=== PATIENT | male | born 1995 | race African-American/Black ===

== ENCOUNTER 2020-01-27 10:03 | Inpatient (IN) | payer OTHER ==
[2020-01-27] VITALS (13 sets, daily range): BP systolic 134–174; BP diastolic 63–90
[~2020-01-27] VITALS: Ht 180.3 cm; Wt 93.0 kg
[~2020-01-27 10:03] MED LIST: LEXAPRO10 MG ORAL; Lidocaine 1% MPF 10mg/ml 5ml ONE; Midazolam 2mg/2ml Inj ONE; fentaNYL 100 mcg/2 mL IV ONE
--- NOTE | 2020-01-27 10:08 | Pre-Procedure Note/Attestation ---
Pre-Procedure Note/Attestation Complete Prior to Procedure Planned Procedure: bilateral Procedure Narrative: Bilateral axillary excision and flap elevation. Attestation I attest that I discussed the nature of the procedure; its benefits; risks and complications; and alternatives (and the risks and benefits of such alternatives), prior to the procedure, with the patient (or the patient's legal food products sales representative). I attest that, if there was a reasonable possibility of needing a blood transfusion, the patient (or the patient's legal food products sales representative) was given the [facility] standardized written summary, pursuant to the [place] Blood Safety Act ([place] [facility] and Safety Code # 1645, as amended). I attest that I re-evaluated the patient just prior to the surgery and that there has been no change in the patient's H&P, except as documented below: Manas March MD Jan 27, 2020 10:08
[2020-01-27] MEDS ORDERED: Succinylcholine 20mg/ml 10ml vial ONE (10:12)
[2020-01-27] MEDS ORDERED: TransDerm Scop 1.5mg/72HR Patch TDERMAL ONE (10:12)
[2020-01-27] MEDS ORDERED: Rocuronium Bromide 50mg/5ml Inj IV ONE ×2 (10:12→16:07)
[2020-01-27] MEDS ORDERED: EPINEPHrine 1mg/1ml Amp ONE (10:17)
[2020-01-27] MEDS ORDERED: Bacitracin 50000 Units Vial ONE ×2 (10:18→13:16)
[2020-01-27] MEDS ORDERED: Lidocaine 1%/ 10mg/ml/EPI 0.01mg/ml 20ml INJ ONE ×2 (10:18→13:16)
--- NOTE | 2020-01-27 15:06 | Anethesia Preoperative Eval ---
Anesthesia Pre-op PMH/ROS General Date of Evaluation: Jan 27, 2020 Time of Evaluation: 15:49 Anesthesiologist: Katherine ASA Score: ASA 1 Mallampati Score Class I : Soft palate, uvula, fauces, pillars visible Class II: Soft palate, uvula, fauces visible Class III: Soft palate, base of uvula visible Class IV: Only hard plate visible Mallampati Classification: Class II Surgeon: Anca Diagnosis: Hiradenitis Surgical Procedure: Bilateral axillary excision and flap elevation Anesthesia History: none Family History: no anesthesia problems Allergies: Coded Allergies: No Known Allergies (Unverified , 01/27/20) Medications: see eMAR Patient NPO?: Yes Past Medical History Musculoskeletal/Integumentary: Reports: other - Suppurative Hidradenitis Anesthesia Pre-op Phys. Exam Physician Exam Last Vital Signs Date Time Temp Pulse Resp B/P (MAP) Pulse Ox O2 Delivery O2 Flow Rate FiO2 01/27/20 10:32 97.8 94 20 139/63 (88) 97 Constitutional: NAD Neurologic: CN 2-12 intact Cardiovascular: RRR Respiratory: CTA Gastrointestinal: S/NT/ND Airway Exam Mallampati Score: Class II MO: full ROM: full Teeth: intact Anesthesia Pre-op A/P Risk Assessment & Plan Assessment: ASA 1 Plan: GA, SED, GlideScope Status Change Before Surgery: No Pre-Antibiotics Dru Gram Ancef IV Given Within 1 Hr of Incision: Yes Time Given: 16:16 Jason Murphy MD Jan 27, 2020 15:06
--- NOTE | 2020-01-27 15:10 | Immediate Post-Op Evaluation ---
Immediate Post-Op Evalulation Immediate Post-Op Evalulation Procedure: Bilateral axillary excision and flap elevation Date of Evaluation: Jan 27, 2020 Time of Evaluation: 19:19 IV Fluids: 1200 LR Blood Products: 0 Estimated Blood Loss: 200 Urinary Output: 0 Blood Pressure Systolic: 148 Blood Pressure Diastolic: 85 Pulse Rate: 94 Respiratory Rate: 16 O2 Sat by Pulse Oximetry: 94 Temperature (Fahrenheit): 97.3 Pain Score (1-10): 2 Nausea: No Vomiting: No Complications 0 Patient Status: awake, reacts, patent, extubated, none Hydration Status: adequate Dru Gram Ancef IV Given Within 1 Hr of Incision: Yes Time Given: 16:16 Jason Murphy MD Jan 27, 2020 15:10
[2020-01-27] MEDS ORDERED: LORazepam Inj 2mg/ml 1ml IV PRN (15:15)
[2020-01-27] MEDS ORDERED: Labetalol 5mg/ml 20ml vial IV PRN (15:15)
[2020-01-27] MEDS ORDERED: LR 1000ml 1,000 ML IVLG SCH (15:15)
[2020-01-27] MEDS ORDERED: Hydromorphone 0.5mg/0.5ml inj IVP PRN (15:15)
[2020-01-27] MEDS ORDERED: HYDROcodone/Acetamin 5/325 tab ORAL PRN ×2 (15:15→22:00)
[2020-01-27] MEDS ORDERED: Midazolam 2mg/2ml Inj IVP PRN (15:15)
[2020-01-27] MEDS ORDERED: Metoclopramide 10mg/2ml Inj IVP PRN (15:15)
[2020-01-27] MEDS ORDERED: fentaNYL 100 mcg/2 mL IV PRN (15:15)
[2020-01-27] MEDS ORDERED: Meperidine 25mg/1ml Inj (FOR RIGORS ONLY) IV PRN (15:15)
[2020-01-27] MEDS ORDERED: Ketorolac 30mg Inj IV PRN ×2 (15:15)
[2020-01-27] MEDS ORDERED: HYDROcodone/Acetamin 7.5/325 tab ORAL PRN (15:15)
[2020-01-27] MEDS ORDERED: oxyCODONE HCL/Acetaminophen 5/325mg ORAL PRN (15:15)
[2020-01-27] MEDS ORDERED: DiphenhydrAMINE 50mg/ml Inj IVP PRN (15:15)
[2020-01-27] MEDS ORDERED: Atropine Sulfate 0.4mg/ml inj IVP PRN (15:15)
[2020-01-27] MEDS ORDERED: Acetaminophen (Non formulary) 100 ML IV ONE (15:15)
[2020-01-27] MEDS ORDERED: NS Irrig 1000ml ONE (15:50)
[2020-01-27] MEDS ORDERED: Sterile Water Irrig 1000ml IRRIG ONE (15:50)
[2020-01-27] MEDS ORDERED: LR 1000ml ONE (15:50)
[2020-01-27] MEDS ORDERED: Lidocaine 1% Plain 30 ml INJ ONE ×2 (15:56→17:38)
[2020-01-27] MEDS ORDERED: Lidocaine 1% MPF 10mg/ml 5ml ONE (15:56)
[2020-01-27] MEDS ORDERED: Sodium Chloride 10ml vial INJ ONE (15:56)
[2020-01-27] MEDS ORDERED: PCA Education Pamphlet MISC ONE (16:00)
[2020-01-27] MEDS ORDERED: Rate Change PCA 1 Each MISC PRN (16:00)
[2020-01-27] MEDS ORDERED: fentaNYL 100 mcg/2 mL IV ONE ×3 (16:04→18:05)
[2020-01-27] MEDS ORDERED: Ketamine 500mg/10ml vial ONE (16:49)
[2020-01-27] MEDS ORDERED: Surgicel 4in x 8in TOPIC ONE (16:55)
--- NOTE | 2020-01-27 17:56 | History and Physical ---
History of Present Illness Present Illness HPI Mr. Grayson is a 24-year-old male with past medical history of bilateral axillary hidradenitis suppurative who is postop bilateral excision and flap removal of HS. no postoperative complications noted. Patient with some acute postop pain. Otherwise stable. Notes no other medical history aside of anxiety. Takes as Lexapro daily. Most modalities to treat his at bedtime however unsuccessful. Rest of review systems otherwise negative. Past medical history: Anxiety, hidradenitis suppurative Past surgical history: None Family history: Mom and dad both have hypertension Social history: Denies tobacco use, drug use, is a social drinker Allergies: Coded Allergies: No Known Allergies (Unverified , 01/27/20) COVID-19 Screening Contact w/high risk pt: No Experienced COVID-19 symptoms?: No Medication History Scheduled Escitalopram Oxalate* (Lexapro*), 10 MG ORAL DAILY, (Reported) Patient History Healthcare decision maker Resuscitation status Advanced Directive on File Review of Systems Constitutional: Denies: no symptoms, see HPI, chills, sweats, fever, malaise, weakness, other Eye: Denies: no symptoms, see HPI, eye pain, blurred vision, tearing, double vision, nose pain, nose congestion, acuity changes, discharge, other ENT: Denies: no symptoms, see HPI, ear pain, ear discharge, nose pain, nose congestion, throat pain, throat swelling, mouth pain, hearing loss, nasal discharge, other Respiratory: Denies: no symptoms, see HPI, cough, orthopnea, shortness of breath, stridor, wheezing, LOU, sputum, other Cardiovascular: Denies: no symptoms, see HPI, chest pain, edema, palpitations, syncope, PND, other Gastrointestinal: Denies: no symptoms, see HPI, abdominal pain, constipation, diarrhea, nausea, vomiting, melena, hematemesis, other Genitourinary: Denies: no symptoms, see HPI, discharge, dysuria, frequency, hematuria, pain, retention, incontinence, urgency, vag bleed/dc, other Musculoskeletal: Reports: muscle pain; Denies: no symptoms, see HPI, back pain, gout, joint pain, joint swelling, muscle stiffness, other Skin: Denies: no symptoms, see HPI, rash, change in color, change in hair/nails, dryness, lesions, other Psychiatric: Denies: no symptoms, see HPI, prior hx, anxiety, depressed feelings, emotional problems, SI, HI, hallucinations, other Neurological: Denies: no symptoms, see HPI, headache, numbness, paresthesia, seizure, tingling, tremors, focal weakness, syncope, dizziness, other Endocrine: Denies: no symptoms, see HPI, excessive sweating, flushing, intolerance to temperature, increased thirst, increased urine, unexplained weight loss, other Hematologic/Lymphatic: Denies: no symptoms, see HPI, anemia, blood clots, easy bleeding, easy bruising, swollen glands, diathesis, other Physical Exam General Appearance: no apparent distress, alert, alert oriented x3 HEENT: normocephalic, atraumatic Neck: normal alignment, normal inspection Respiratory/Chest: lungs clear, normal breath sounds, no respiratory distress Cardiovascular/Chest: normal rate, regular rhythm, no JVD Abdomen: normal bowel sounds, non tender, soft Extremities: other - Bilateral surgical wounds and surgical dressing, clean dry intact, surgical drains noted, unable to move arms at this time Skin Exam: normal pigmentation, warm/dry Neurologic: xm1 tank driver II-XII grossly normal, alert, oriented x 3 Musculoskeletal: normal muscle bulk Last 24 Hour Vital Signs Date Time Temp Pulse Resp B/P (MAP) Pulse Ox O2 Delivery O2 Flow Rate FiO2 01/27/20 10:32 97.8 94 20 139/63 (88) 97 Microbiology Date/Time Source Procedure Growth Status 01/27/20 10:25 Nasopharynx SARS-CoV-2 RdRp Gene Assay - Final Complete Height (Feet): 5 Height (Inches): 11.00 Weight (Pounds): 205 Medications Current Medications Medications (Trade) Dose Ordered Sig/Jami Route PRN Reason Start Time Stop Time Status Last Admin Dose Admin Acetaminophen/ Hydrocodone Bitart ([place] 5/325) 1 tab Q1H PRN ORAL Mild Pain (Pain Scale 1-3) 01/27/20 15:15 01/27/20 21:00 Acetaminophen/ Hydrocodone Bitart ([place] 7.5/325) 1 tab Q1H PRN ORAL Moderate Pain (Pain Scale 4-6) 01/27/20 15:15 01/27/20 21:00 Al Hydroxide/Mg Hydroxide (Mylanta) 15 ml Q1H PRN ORAL gi upset 01/27/20 15:15 01/27/20 21:00 Atropine Sulfate (Atropine 0.4mg/ ml) 0.5 mg Q5M PRN IVP HR<40 01/27/20 15:15 01/27/20 21:00 Diphenhydramine HCl (Benadryl) 25 mg Q15M PRN IVP Itching 01/27/20 15:15 01/27/20 21:00 Docusate Sodium (Colace) 100 mg TWICE A DAY ORAL 01/28/20 09:00 02/27/20 08:59 Fentanyl Citrate (Sublimaze 100 mcg/2 mL) 25 mcg Q10M PRN IV Moderate Pain (Pain Scale 4-6) 01/27/20 15:15 01/27/20 21:00 Heparin Sodium (Porcine) (Heparin 5000 units/ml) 5,000 units EVERY 12 HOURS SUBQ 01/27/20 21:00 03/12/20 20:59 Hydralazine HCl (Apresoline) 5 mg Q30M PRN IV SBP>160 / DBP>90 01/27/20 15:15 01/27/20 21:00 Hydromorphone HCl 30 ml @ 0 mls/hr Q24H PRN IV For Pain 01/27/20 16:01 01/29/20 16:00 Hydromorphone HCl (Dilaudid) 0.5 mg Q15M PRN IVP Severe Pain (Pain Scale 7-10) 01/27/20 15:15 01/27/20 21:00 Ketorolac Tromethamine (Toradol 30mg) 15 mg Q1H PRN IV Moderate Breakthru Pain (5-7) 01/27/20 15:15 01/27/20 21:00 Ketorolac Tromethamine (Toradol 30mg) 30 mg Q1H PRN IV Severe Breakthru Pain (>7) 01/27/20 15:15 01/27/20 21:00 Labetalol HCl (Normodyne) 5 mg Q10M PRN IV SBP>160 / DBP>90 01/27/20 15:15 01/27/20 21:00 Lorazepam (Ativan 2mg/ml 1ml) 1 mg Q15M PRN IV For Anxiety 01/27/20 15:15 01/27/20 21:00 Meperidine HCl (Demerol) 25 mg Q5M PRN IV SHIVERING.MAY REPEAT X 1 01/27/20 15:15 01/27/20 21:00 Metoclopramide HCl (Reglan) 10 mg Q1H PRN IVP Nausea & Vomiting 01/27/20 15:15 01/27/20 21:00 Midazolam HCl (Versed 2mg/2ml vial) 1 mg Q15M PRN IVP For Anxiety 01/27/20 15:15 01/27/20 21:00 Miscellaneous Medication (SUPERVISOR FILTRATION Rate Change) 1 ea DAILY PRN MISC rate change 01/27/20 16:00 01/29/20 15:59 Miscellaneous Medication (SUPERVISOR FILTRATION shift volume) 1 ea Q12HR@0700,1900 MISC 01/27/20 19:00 01/29/20 18:59 Naloxone HCl (Narcan) 0.1 mg Q1M PRN IV RR<10/min OR SBP<90 mmHg 01/27/20 16:15 01/29/20 16:14 Ondansetron HCl (Zofran) 4 mg Q1H PRN IVP Nausea & Vomiting 01/27/20 15:15 01/27/20 21:00 Ondansetron HCl (Zofran) 4 mg Q6H PRN IVP Nausea & Vomiting 01/27/20 16:00 02/26/20 15:59 Oxycodone/ Acetaminophen (Percocet 5-325) 1 tab Q1H PRN ORAL Severe Pain (Pain Scale 7-10) 01/27/20 15:15 01/27/20 21:00 Assessment/Plan Assessment/Plan: Mr. Grayson is a 24-year-old male with past medical history of bilateral hidradenitis suppurative anxiety who presented as a postop A: #Bilateral hidradenitis status post excision and flap elevation #Bilateral HS in axillary, back #Postop pain #Anxiety P: Hemodynamically stable, no respiratory compromise Saturating well on room air, keep O2 sats greater 90% Pain control, currently on SUPERVISOR FILTRATION pump, discussed with patient he has option of IV morphine as needed and [place] oral as needed Monitor respiratory status Bowel regimen Continue home Lexapro We will add clonazepam as needed for anxiety as patient takes benzos at home as well Follow-up labs in the morning IVF Code: Full GI none DVT prophylaxis: Heparin 5000 mg twice daily Diet: Regular Dispo: Pending postop care Time spent on this encounter was 71 minutes which included 45 minutes of counseling and care coordination. I discussed with the nurse at bedside. Time of note may not reflect time patient was seen. Ildefonso Saldivar D.O Jan 27, 2020 17:56
[2020-01-27] MEDS ORDERED: Phenylephrine 10mg/ml Vial ONE (18:27)
[2020-01-27] MEDS ORDERED: Glycopyrrolate 0.2mg/ml 1ml Vial ONE (18:45)
[2020-01-27] MEDS: PCA shift volume MISC SCH (19:00)
[2020-01-27] MEDS: PCA HYDROmorphone 1mg/ml 30 ML IV PRN (19:35)
[2020-01-27] MEDS ORDERED: Albuterol/Ipratropium 3ml neb HHN PRN (20:00)
[2020-01-27] MEDS: Heparin 5000 units/ml inj SUBQ SCH (21:00)
[2020-01-27] MEDS ORDERED: Morphine Sulfate 4mg/ml Inj (IV USE ONLY) IVP PRN (22:00)
[2020-01-28] VITALS: BP 140/85
--- NOTE | 2020-01-28 02:15 | Operative Note - Dictated ---
DATE OF OPERATION: 01/27/2020 PREOPERATIVE DIAGNOSIS: Bilateral advanced infected stage III hidradenitis suppurativa of the axilla. POSTOPERATIVE DIAGNOSIS: Bilateral advanced infected stage III hidradenitis suppurativa of the axilla. PROCEDURE: 1. Radical excision of left axillary stage III infected hidradenitis resulting in a defect that measured 17 x 15 cm. 2. Elevation of a lateral chest wall thoracodorsal artery flap for staged closure of left axillary wound. 3. Radical excision of right axillary infected hidradenitis stage III resulting in a defect that measured 16 x 14 cm. 4. Elevation of a lateral chest wall thoracodorsal artery flap for staged closure of right axillary wound. SURGEON: Manas March MD TECHNICAL PROJECT LEAD: Traci Pérez MD ANESTHESIA: General. COMPLICATIONS: None. DRAINS: None. ESTIMATED BLOOD LOSS: Approximately 75 mL. DISPOSITION: Stable to the recovery room. INDICATIONS FOR SURGERY: This is a 24-year-old male with a longstanding history of hidradenitis suppurativa affecting both axillae as well as his buttock and perineal region. He has tried and failed multiple medical modalities and has been in constant pain over the past several years. He sought my care by the way of reaching out to me from [place] where we had long discussions about the severity of the disease and the need for urgent treatment. He was granted an in-network exception by his insurance company to come and undergo this radical treatment for his late-stage hidradenitis. I discussed with him that given the fact that it is infected, it would not allow for definitve one-stage closure of the wound. He understood that it would require a staged approach where we would first need to excise the tissue and elevate the flaps followed by definitive flap inset. He understood the risks and benefits of surgery and agreed to proceed. DETAILS OF THE OPERATION: The patient was brought to the operating room and laid in the supine position on the operating room table. We prepped his bilateral axillary regions and chest wall laterally and anteriorly in a sterile and usual fashion. Both axillary areas of disease were marked using a surgical marking pen. We began on the left side by injecting a total of 10 mL of lidocaine with epinephrine into the wound base of the infected axillary tissue. We then used a #10 blade to make the incision around the premarked areas and the electrocautery was then used to dissect all the way down to the level of the axillary fascia. We then removed the specimen en bloc resulting in a very large defect on this side. The defect that resulted was 17 x 15 cm. Clearly, this was not amenable to primary closure. As such, a premarked lateral chest wall flap that had been designed for the excision was slightly modified to allow coverage for the dimensions of the wound and the flap was then cut in a U-shaped skin incision all the way down with the use of the electrocautery down to the level of the latissimus muscle. The flap was elevated along the latissimus muscle and fascia as a fasciocutaneous flap. In addition, we mobilized the periphery of the axillary wound itself, mobilizing the skin flaps over the pec muscle, the deltoid as well as the brachial tissue to allow for further soft tissue coverage. The resulting defect of the donor site was quite large and normally we leave the flap in the donor site to allow for a staged closure; however, given the large size of the defect that resulted, I felt that we would need to use the concept of acute tissue expansion also known as creep to allow for the tissues to stretch in the interim before the staged definitive closure of the flap. As such, following irrigation and hemostasis, Surgicel was placed in the wound and we used several towel clips to reapproximate the skin flaps of the donor site above the chest wall flap. With the towel clamps in place, multiple 0 Vicryl sutures were placed to allow for closure of the wound followed by skin closure using multiple shana. Due to the fact that this was an infected case, the fap itself it was tentatively inset. It was loosely reapproximated to the wound edges using shana with some open areas left for drainage to take place. The plan is we will be bringing the patient back to the operating room within 48 hours for definitive flap inset and adjacent tissue transfer, to reassess the status of the donor site to see whether or not additional closure techniques will be required for a tension-free closure. The dressing was then applied to the entire incision and flap on this side. We then turned our attention to the contralateral right axillary tissue. As was done on the other side, a total of 10 mL of lidocaine with epinephrine was injected into the wound base. A #10 blade was then used to make the incision around the axillary infected tissue. This resulted in a large defect and measured 16 x 14 cm and as was seen on the other side, it was clearly not amenable to primary closure. We began by mobilizing some of the tissues over the deltoid, pec muscle as well as brachial tissue to allow for more soft tissue coverage. A corresponding chest wall flap based on the thoracodorsal artery that had been preoperatively designed had to be modified to adjust for the wound dimensions and then a #10 blade was then used to make a U-shaped incision over the flap and dissection was carried out using electrocautery down to the level of the latissimus muscle and flap was elevated along with the fascia of the latissimus muscle to increase the perfusion to the flap. The flap was then inset and noted to fit the defect; however, given the size of the dimensions of the wound and flap requirements, in a similar fashion to the left side, the flap donor site was thought to be in need of acute tissue expansion or creep reapproximating the skin edges using towel clips and this was done as it was done on the other side with subsequent placement of multiple 0 Vicryl sutures and shana on the skin and the flap was then loosely inset with shana with areas left for drainage again given the fact this was an infected case. The plan will be to bring the patient back to the operating room within 48 hours to assess the closure of the donor site and to see whether there is a need for further closure techniques or the addition of more sutures to decrease the tension on the wound as well as definitive adjacent tissue transfer of the flap. This completed the radical excision of bilateral axillary tissue with bilateral thoracodorsal artery lateral chest wall flap elevation. All needle and sponge counts were correct. The patient tolerated the procedure well. There were no complications. Manas March M.D. DR: Yani JOB#: [id number] CC: KATHLEEN
[2020-01-28 03:05] VITALS: BP 126/79
[2020-01-28] MEDS: PCA shift volume MISC SCH ×2 (07:00→19:00)
[2020-01-28 07:05] LABS: ALANINE AMINOTRANSFERASE 21 U/L (12-78); ALBUMIN 2.7 G/DL (3.4-5.0); ALBUMIN/GLOBULIN RATIO 0.6 (1.0-2.7); ALKALINE PHOSPHATASE 44 U/L (46-116); ANION GAP 7 mmol/L (5-15); ASPARTATE AMINO TRANSFERASE 19 U/L (15-37); BILIRUBIN,TOTAL 0.4 MG/DL (0.2-1.0); BLOOD UREA NITROGEN 7 mg/dL (7-18); CALCIUM 7.8 MG/DL (8.5-10.1); CARBON DIOXIDE 28 MMOL/L (21-32); CHLORIDE 102 MMOL/L (98-107); POTASSIUM 4.2 MMOL/L (3.5-5.1); SODIUM 137 MMOL/L (136-145)
[2020-01-28 07:23] LABS: HEMOGLOBIN 12.1 G/DL (14.2-18.0); MEAN CORPUSCULAR VOLUME 87 FL (80-99); PLATELET COUNT 457 K/UL (150-450); RED BLOOD COUNT 4.51 M/UL (4.70-6.10); RED CELL DISTRIBUTION WIDTH 15.3 % (11.6-14.8)
[2020-01-28 07:24] LABS: WHITE BLOOD COUNT 24.7 K/UL (4.8-10.8)
[2020-01-28 08:00] VITALS: BP 143/82
[2020-01-28] MEDS ORDERED: Magnesium Oxide 400mg tab ORAL SCH (08:00)
--- NOTE | 2020-01-28 08:08 | General Progress Note ---
Progress Note Progress Note Pt seen and examined. POD# 1. Doing well and pain well controlled with INSTRUCTOR KINDERGARTEN. Right dressings had to be reinforced as there was an area that was oozing. It stopped with pressure. Dressings redone completely on that side. Plan for OR tomorrow for definitive flap closure of bilateral axillary wounds. MD Anca Ramon Amir MD Jan 28, 2020 08:08
[2020-01-28] MEDS ORDERED: Zolpidem 5mg tab ORAL PRN (08:45)
[2020-01-28] MEDS ORDERED: Zolpidem 5mg tab ORAL SCH (09:00)
[2020-01-28] MEDS: Docusate 100mg cap ORAL SCH ×2 (09:00→17:11)
[2020-01-28] MEDS: Heparin 5000 units/ml inj SUBQ SCH ×2 (09:00→20:54)
--- NOTE | 2020-01-28 11:59 | 48 Hour Post Anesthesia Eval ---
Post Anesthesia Evaluation Procedure: Bilateral axillary excision and flap elevation Date of Evaluation: Jan 28, 2020 Time of Evaluation: 07:50 Blood Pressure Systolic: 124 0: 58 Pulse Rate: 82 Respiratory Rate: 22 Temperature (Fahrenheit): 97.6 O2 Sat by Pulse Oximetry: 98 Airway: patent Nausea: No Vomiting: No Pain Intensity: 3 Hydration Status: adequate Cardiopulmonary Status: stable Mental Status/LOC: patient returned to baseline Follow-up Care/Observations: Dressing on wound in R axillary area partially saturated with blood, according to nursing stuff report it was changed twice before, Dr. March was informed about this problem Post-Anesthesia Complications: none Follow-up care needed: N/A Zeke Henry MD Jan 28, 2020 11:59
[2020-01-28 12:00] VITALS: BP 131/80
--- NOTE | 2020-01-28 12:50 | General Progress Note ---
Subjective Constitutional: Denies: no symptoms, chills, diaphoresis, fever, malaise, weakness, other HEENT: Denies: no symptoms, eye pain, blurred vision, tearing, double vision, ear pain, ear discharge, nose pain, nose congestion, throat pain, throat swelling, mouth pain, mouth swelling, other Cardiovascular: Denies: no symptoms, chest pain, edema, irregular heart rate, lightheadedness, palpitations, syncope, other Respiratory: Denies: no symptoms, cough, orthopnea, shortness of breath, SOB with excertion, SOB at rest, sputum, stridor, wheezing, other Gastrointestinal/Abdominal: Denies: no symptoms, abdomen distended, abdominal pain, black stools, tarry stools, blood in stool, constipated, diarrhea, difficulty swallowing, nausea, poor appetite, poor fluid intake, rectal bleeding, vomiting, other Genitourinary: Denies: no symptoms, burning, discharge, frequency, flank pain, hematuria, incontinence, pain, urgency, other Neurologic/Psychiatric: Denies: no symptoms, anxiety, depressed, emotional problems, headache, numbness, paresthesia, pre-existing deficit, seizure, tingling, tremors, weakness, other Endocrine: Denies: no symptoms, excessive sweating, flushing, intolerance to cold, intolerance to heat, increased hunger, increased thirst, increased urine, unexplained weight gain, unexplained weight loss, other Hematologic/Lymphatic: Denies: no symptoms, anemia, easy bleeding, easy bruising, other Allergies: Coded Allergies: No Known Allergies (Unverified , 01/27/20) Subjective No acute events overnight. Patient feels well this morning. Pain tolerable. Still using BLEACHER SULFITE PULP pump. No fevers, chills, dysuria, cough, chest pain, abdominal pain. Wound drains intact. Objective Last 24 Hour Vital Signs Date Time Temp Pulse Resp B/P (MAP) Pulse Ox O2 Delivery O2 Flow Rate FiO2 01/28/20 12:00 98 18 97 01/28/20 12:00 98.6 98 18 131/80 (97) 97 01/28/20 11:59 82 22 98 01/28/20 09:00 Room Air 01/28/20 08:00 99.3 77 20 143/82 (102) 94 01/28/20 08:00 77 20 94 01/28/20 03:05 98.4 65 17 126/79 (95) 98 01/28/20 00:00 98.9 86 18 140/85 (103) 93 01/27/20 21:15 99.8 76 18 142/76 (98) 88 01/27/20 21:00 Nasal Cannula 2.0 01/27/20 21:00 99.4 80 17 143/78 (99) 95 01/27/20 20:45 99.4 80 17 145/82 (103) 95 01/27/20 20:35 97.6 84 18 134/84 98 Nasal Cannula 3 01/27/20 20:30 99.4 76 18 138/80 (99) 92 01/27/20 20:17 97.3 01/27/20 20:15 86 16 138/85 98 Nasal Cannula 3 01/27/20 20:00 83 18 144/84 98 Nasal Cannula 3 01/27/20 20:00 18 01/27/20 19:45 20 01/27/20 19:45 90 17 147/87 97 Nasal Cannula 3 01/27/20 19:30 92 19 153/84 100 Nasal Cannula 3 01/27/20 19:30 16 01/27/20 19:20 84 22 145/86 99 Simple Mask 6 01/27/20 19:15 87 20 148/85 95 Simple Mask 6 01/27/20 19:10 94 16 94 01/27/20 19:08 97.0 92 22 174/90 94 Simple Mask 6 Intake and Output 01/27/20 01/28/20 19:00 07:00 Intake Total 250 ml Output Total 470 ml Balance -220 ml Intake Oral 50 ml IV Total 200 ml Output Urine Total 450 ml Estimated Blood Loss 20 ml # Voids 1 2 Laboratory Tests 01/28/20 05:20: White Blood Count 24.7*H, Red Blood Count 4.51L, Hemoglobin 12.1L, Hematocrit 39.0L, Mean Corpuscular Volume 87, Mean Corpuscular Hemoglobin 26.8L, Mean Corpuscular Hemoglobin Concent 30.9L, Red Cell Distribution Width 15.3H, Platelet Count 457H, Mean Platelet Volume 6.9, Neutrophils (%) (Auto) , Lymphocytes (%) (Auto) , Monocytes (%) (Auto) , Eosinophils (%) (Auto) , Basophils (%) (Auto) , Differential Total Cells Counted 100, Neutrophils % (Manual) 88H, Lymphocytes % (Manual) 6L, Monocytes % (Manual) 6, Eosinophils % (Manual) 0, Basophils % (Manual) 0, Band Neutrophils 0, Platelet Estimate IncreasedH, Platelet Morphology Normal, Red Blood Cell Morphology Normal, Sodium Level 137, Potassium Level 4.2, Chloride Level 102, Carbon Dioxide Level 28, Anion Gap 7, Blood Urea Nitrogen 7, Creatinine 1.0, Estimat Glomerular Filtration Rate > 60, Glucose Level 107H, Calcium Level 7.8L, Magnesium Level 1.7L, Total Bilirubin 0.4, Aspartate Amino Transf (AST/SGOT) 19, Alanine Aminotransferase (ALT/SGPT) 21, Alkaline Phosphatase 44L, Total Protein 7.6, Albumin 2.7L, Globulin 4.9, Albumin/Globulin Ratio 0.6L Height (Feet): 5 Height (Inches): 11.00 Weight (Pounds): 205 General Appearance: no apparent distress, alert, alert oriented x3 EENT: PERRL/EOMI Neck: non-tender, normal alignment Cardiovascular: normal rate, regular rhythm, no JVD Respiratory/Chest: lungs clear, normal breath sounds Abdomen: non tender, soft Extremities: other - Bilateral surgical dressings in place, clean, dry, intact, OSCAR drains in place. 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 Grayson is a 24-year-old male with past medical history of bilateral hidradenitis suppurative anxiety who presented as a postop A: #Bilateral hidradenitis status post excision and flap elevation day 1 #Leukocytosis likely reactive #Anemia likely postop loss #Bilateral HS in axillary, back #Postop pain #Anxiety P: Hemodynamically stable, no respiratory compromise Saturating well on room air, keep O2 sats greater 90% Leukocytosis at 25 this morning, however patient with no signs of overt symptoms of infectious etiologies, denies fever, chills, chest pain, cough, abdominal pain, dysuria we will continue to monitor and trend CBC Mild postop anemia, monitor CBC Pain control, currently on BLEACHER SULFITE PULP pump, discussed with patient he has option of IV morphine as needed and [place] oral as needed Monitor respiratory status Bowel regimen Continue home Lexapro We will add clonazepam as needed for anxiety as patient takes benzos at home as well IVF we will go back to the OR tomorrow per nurse Code: Full GI none DVT prophylaxis: Heparin 5000 mg twice daily Diet: Regular Dispo: Surgery scheduled for tomorrow Time spent on this encounter was 35 minutes which included 21 minutes of counseling and care coordination. I discussed with the nurse at bedside. Time of note may not reflect time patient was seen. Ildefonso Saldivar D.O Jan 28, 2020 12:50
[2020-01-28] MEDS ORDERED: clonazePAM 0.5mg tab ORAL PRN (15:00)
[2020-01-28 16:00] VITALS: BP_SYST 129; BP_SYST 140; BP_DIAS 79; BP_DIAS 80
[2020-01-28] MEDS: DiphenhydrAMINE 50mg/ml Inj IVP PRN (17:11)
[2020-01-28] MEDS ORDERED: Naloxone 1mg/ml 2ml IVP PRN (18:00)
[2020-01-28] MEDS: clonazePAM 0.5mg tab ORAL PRN (19:57)
[2020-01-28 20:00] VITALS: BP 139/84
[2020-01-28] MEDS: PCA HYDROmorphone 1mg/ml 30 ML IV PRN (23:58)
[2020-01-29] VITALS (15 sets, daily range): BP systolic 132–165; BP diastolic 61–92
[2020-01-29] MEDS: DiphenhydrAMINE 50mg/ml Inj IVP PRN ×3 (01:19→17:48)
[2020-01-29 06:41] LABS: BASOPHILS % (AUTO) 1.3 % (0.0-2.0); EOSINOPHILS % (AUTO) 0.1 % (0.0-3.0); HEMOGLOBIN 11.4 G/DL (14.2-18.0); LYMPHOCYTES % (AUTO) 16.1 % (20.0-45.0); MEAN CORPUSCULAR VOLUME 86 FL (80-99); MONOCYTES % (AUTO) 6.3 % (1.0-10.0); NEUTROPHILS % (AUTO) 76.3 % (45.0-75.0); PLATELET COUNT 378 K/UL (150-450); RED BLOOD COUNT 4.18 M/UL (4.70-6.10); RED CELL DISTRIBUTION WIDTH 15.1 % (11.6-14.8); WHITE BLOOD COUNT 13.5 K/UL (4.8-10.8)
[2020-01-29] MEDS: PCA shift volume MISC SCH ×2 (07:00→19:00)
[2020-01-29 07:11] LABS: ANION GAP 6 mmol/L (5-15); BLOOD UREA NITROGEN 6 mg/dL (7-18); CARBON DIOXIDE 32 MMOL/L (21-32); CHLORIDE 101 MMOL/L (98-107); CREATININE 0.9 MG/DL (0.55-1.30); POTASSIUM 3.5 MMOL/L (3.5-5.1); SODIUM 138 MMOL/L (136-145)
[2020-01-29] MEDS: Docusate 100mg cap ORAL SCH ×2 (09:00→17:48)
[2020-01-29] MEDS: Heparin 5000 units/ml inj SUBQ SCH ×2 (09:00→20:14)
[2020-01-29] MEDS ORDERED: Lidocaine 1% Plain 30 ml INJ ONE (11:36)
[2020-01-29] MEDS ORDERED: EPINEPHrine 1mg/1ml Amp ONE (11:36)
[2020-01-29] MEDS ORDERED: Bacitracin 50000 Units Vial ONE (11:37)
--- NOTE | 2020-01-29 11:41 | General Progress Note ---
Subjective Constitutional: Denies: no symptoms, chills, diaphoresis, fever, malaise, weakness, other HEENT: Denies: no symptoms, eye pain, blurred vision, tearing, double vision, ear pain, ear discharge, nose pain, nose congestion, throat pain, throat swelling, mouth pain, mouth swelling, other Cardiovascular: Denies: no symptoms, chest pain, edema, irregular heart rate, lightheadedness, palpitations, syncope, other Respiratory: Denies: no symptoms, cough, orthopnea, shortness of breath, SOB with excertion, SOB at rest, sputum, stridor, wheezing, other Gastrointestinal/Abdominal: Denies: no symptoms, abdomen distended, abdominal pain, black stools, tarry stools, blood in stool, constipated, diarrhea, difficulty swallowing, nausea, poor appetite, poor fluid intake, rectal bleeding, vomiting, other Genitourinary: Denies: no symptoms, burning, discharge, frequency, flank pain, hematuria, incontinence, pain, urgency, other Neurologic/Psychiatric: Denies: no symptoms, anxiety, depressed, emotional problems, headache, numbness, paresthesia, pre-existing deficit, seizure, tingling, tremors, weakness, other Endocrine: Denies: no symptoms, excessive sweating, flushing, intolerance to cold, intolerance to heat, increased hunger, increased thirst, increased urine, unexplained weight gain, unexplained weight loss, other Hematologic/Lymphatic: Denies: no symptoms, anemia, easy bleeding, easy bruising, other Allergies: Coded Allergies: No Known Allergies (Unverified , 01/27/20) Subjective No acute events overnight. Patient feels well this morning. Patient with better sleep with the clonazepam. Pain is persist but tolerable on the [employer]IST[employer] pump. Catheter for or later today in the afternoon. Objective Last 24 Hour Vital Signs Date Time Temp Pulse Resp B/P (MAP) Pulse Ox O2 Delivery O2 Flow Rate FiO2 01/29/20 09:00 Room Air 01/29/20 08:07 97 Room Air 21 01/29/20 08:00 78 16 93 01/29/20 08:00 99.1 78 16 144/88 (106) 93 01/29/20 04:00 98.8 78 16 149/92 (111) 94 01/29/20 04:00 78 16 94 01/29/20 00:00 79 16 97 01/29/20 00:00 97.7 61 16 136/90 (105) 94 01/28/20 21:00 Room Air 01/28/20 20:43 96 Room Air 21 01/28/20 20:00 98.5 61 16 139/84 (102) 97 01/28/20 20:00 98 17 97 01/28/20 16:37 98 Room Air 21 01/28/20 16:00 98 18 97 01/28/20 16:00 98.7 80 18 140/80 (100) 98 01/28/20 12:00 98 18 97 01/28/20 12:00 98.6 98 18 131/80 (97) 97 01/28/20 11:59 82 22 98 Intake and Output 01/28/20 01/29/20 19:00 07:00 Intake Total 1625 ml Output Total 800 ml 900 ml Balance -800 ml 725 ml Intake Oral 800 ml IV Total 825 ml Output Urine Total 800 ml 900 ml # Voids 4 3 Laboratory Tests 01/29/20 05:30: White Blood Count 13.5H, Red Blood Count 4.18L, Hemoglobin 11.4L, Hematocrit 36.0L, Mean Corpuscular Volume 86, Mean Corpuscular Hemoglobin 27.4, Mean Corpuscular Hemoglobin Concent 31.7L, Red Cell Distribution Width 15.1H, Platelet Count 378, Mean Platelet Volume 6.4L, Neutrophils (%) (Auto) 76.3H, Lymphocytes (%) (Auto) 16.1L, Monocytes (%) (Auto) 6.3, Eosinophils (%) (Auto) 0.1, Basophils (%) (Auto) 1.3, Sodium Level 138, Potassium Level 3.5, Chloride Level 101, Carbon Dioxide Level 32, Anion Gap 6, Blood Urea Nitrogen 6L, Cr eatinine 0.9, Estimat Glomerular Filtration Rate > 60, Glucose Level 82, Calcium Level 8.0L, Magnesium Level 1.9 Height (Feet): 5 Height (Inches): 11.00 Weight (Pounds): 205 General Appearance: no apparent distress, alert, alert oriented x3 EENT: PERRL/EOMI, normal ENT inspection Neck: normal alignment, supple Cardiovascular: normal rate, regular rhythm, no JVD Respiratory/Chest: lungs clear, normal breath sounds Abdomen: normal bowel sounds, non tender, soft Extremities: other - Bilateral surgical dressings, clean, dry Edema: no edema noted Arm (L), no edema noted Arm (R), no edema noted Leg (L), no edema noted Leg (R), no edema noted Pedal (L), no edema noted Pedal (R), no edema noted Generalized Neurologic: covering machine tender II-XII grossly normal, alert, oriented x 3 Skin: normal pigmentation, warm/dry Assessment/Plan Assessment/Plan: Mr. Grayson is a 24-year-old male with past medical history of bilateral hidradenitis suppurative anxiety who presented as a postop A: #Bilateral hidradenitis status post excision and flap elevation day 1 #Leukocytosis likely reactiveimproved #Anemia likely postop loss #Bilateral HS in axillary, back #Postop pain #Anxiety P: Scheduled for repeat OR today in the afternoon by Dr. March Hemodynamically stable, no respiratory compromise Saturating well on room air, keep O2 sats greater 90% Leukocytosis improved from 25->13 today, continue to monitor Mild postop anemia, monitor CBC Pain control, currently on [employer]IST[employer] pump, discussed with patient he has option of IV morphine as needed and [place] oral as needed Monitor respiratory status Bowel regimen Continue home Lexapro We will add clonazepam as needed for anxiety as patient takes benzos at home as well IVF Code: Full GI none DVT prophylaxis: Heparin 5000 mg twice daily Diet: Regular Dispo: Surgery scheduled for today Time spent on this encounter was 36 minutes which included 21 minutes of counseling and care coordination. I discussed with the nurse at bedside. Time of note may not reflect time patient was seen. Ildefonso Saldivar D.O Jan 29, 2020 11:41
[2020-01-29] MEDS ORDERED: Succinylcholine 20mg/ml 10ml vial ONE (11:49)
[2020-01-29] MEDS ORDERED: Rocuronium Bromide 50mg/5ml Inj IV ONE (11:49)
[2020-01-29] MEDS ORDERED: NS Irrig 1000ml ONE (12:00)
[2020-01-29] MEDS ORDERED: LR 1000ml ONE (12:00)
[2020-01-29] MEDS ORDERED: Sterile Water Irrig 1000ml IRRIG ONE (12:00)
[2020-01-29] MEDS ORDERED: Glycopyrrolate 0.2mg/ml 1ml Vial ONE ×2 (12:01→14:01)
[2020-01-29] MEDS ORDERED: fentaNYL 100 mcg/2 mL IV ONE (12:01)
[2020-01-29] MEDS ORDERED: Lidocaine 1% MPF 10mg/ml 5ml ONE (12:01)
[2020-01-29] MEDS ORDERED: Midazolam 2mg/2ml Inj ONE (12:01)
--- NOTE | 2020-01-29 12:15 | Anethesia Preoperative Eval ---
Anesthesia Pre-op PMH/ROS General Date of Evaluation: Jan 29, 2020 Time of Evaluation: 12:13 Anesthesiologist: Carl ASA Score: ASA 2 Mallampati Score Class I : Soft palate, uvula, fauces, pillars visible Class II: Soft palate, uvula, fauces visible Class III: Soft palate, base of uvula visible Class IV: Only hard plate visible Mallampati Classification: Class II Surgeon: Anca Diagnosis: Recurrent HS Surgical Procedure: Revision and closure of bilateral axillary wounds Anesthesia History: none Family History: no anesthesia problems Allergies: Coded Allergies: No Known Allergies (Unverified , 01/27/20) Medications: see eMAR Patient NPO?: Yes Past Medical History Cardiovascular: Denies: HTN, CAD, SD, valve dz, arrhythmia, other Pulmonary: Denies: asthma, COPD, JOSIANE, other Gastrointestinal/Genitourinary: Reports: GERD; Denies: CRI, ESRD, other Neurologic/Psychiatric: Reports: depression/anxiety; Denies: dementia, CVA, TIA, other Endocrine: Denies: DM, hypothyroidism, steroids, other HEENT: Denies: cataract (L), cataract (R), glaucoma, HUSLIA (L), HUSLIA (R), other Hematology/Immune: Denies: anemia, DVT, bleeding disorder, other Musculoskeletal/Integumentary: Reports: other - Recurrent HS; Denies: OA, RA, DJD, DDD, edema Other: other - overweight PMH Narrative: as above PSxH Narrative: HS treatment Anesthesia Pre-op Phys. Exam Physician Exam Last Vital Signs Date Time Temp Pulse Resp B/P (MAP) Pulse Ox O2 Delivery O2 Flow Rate FiO2 01/29/20 09:00 Room Air 01/29/20 08:07 97 21 01/29/20 08:00 78 16 01/29/20 08:00 99.1 144/88 (106) 01/27/20 21:00 2.0 Constitutional: NAD Neurologic: CN 2-12 intact Cardiovascular: RRR, no M/R/G Respiratory: CTA Gastrointestinal: S/NT/ND Airway Exam Mallampati Score: Class II MO: full Neck: flexible ROM: full Teeth: intact Dentures: no upper, no lower Anesthesia Pre-op A/P Labs Hematology Test 01/29/20 05:30 White Blood Count 13.5 K/UL (4.8-10.8) H Red Blood Count 4.18 M/UL (4.70-6.10) L Hemoglobin 11.4 G/DL (14.2-18.0) L Hematocrit 36.0 % (42.0-52.0) L Mean Corpuscular Volume 86 FL (80-99) Mean Corpuscular Hemoglobin 27.4 PG (27.0-31.0) Mean Corpuscular Hemoglobin Concent 31.7 G/DL (32.0-36.0) L Red Cell Distribution Width 15.1 % (11.6-14.8) H Platelet Count 378 K/UL (150-450) Mean Platelet Volume 6.4 FL (6.5-10.1) L Neutrophils (%) (Auto) 76.3 % (45.0-75.0) H Lymphocytes (%) (Auto) 16.1 % (20.0-45.0) L Monocytes (%) (Auto) 6.3 % (1.0-10.0) Eosinophils (%) (Auto) 0.1 % (0.0-3.0) Basophils (%) (Auto) 1.3 % (0.0-2.0) Chemistry Test 01/29/20 05:30 Sodium Level 138 MMOL/L (136-145) Potassium Level 3.5 MMOL/L (3.5-5.1) Chloride Level 101 MMOL/L (98-107) Carbon Dioxide Level 32 MMOL/L (21-32) Anion Gap 6 mmol/L (5-15) Blood Urea Nitrogen 6 mg/dL (7-18) L Creatinine 0.9 MG/DL (0.55-1.30) Estimat Glomerular Filtration Rate > 60 mL/min (>60) Glucose Level 82 MG/DL (74-106) Calcium Level 8.0 MG/DL (8.5-10.1) L Magnesium Level 1.9 MG/DL (1.8-2.4) Risk Assessment & Plan Assessment: ASA 2 Plan: GA with ETT Status Change Before Surgery: No Pre-Antibiotics Drug: Ancef 1gr Given Within 1 Hr of Incision: Yes Time Given: 13:10 Zeke Henry MD Jan 29, 2020 12:15
--- NOTE | 2020-01-29 12:32 | Pre-Procedure Note/Attestation ---
Pre-Procedure Note/Attestation Complete Prior to Procedure Planned Procedure: bilateral Procedure Narrative: Bilateral axillary wound flap closure/adjacent tissue transfer Attestation I attest that I discussed the nature of the procedure; its benefits; risks and complications; and alternatives (and the risks and benefits of such alternatives), prior to the procedure, with the patient (or the patient's legal retail representative). I attest that, if there was a reasonable possibility of needing a blood transfusion, the patient (or the patient's legal retail representative) was given the [facility] standardized written summary, pursuant to the [place] [place] Blood Safety Act ([place] Health and Safety Code # 1645, as amended). I attest that I re-evaluated the patient just prior to the surgery and that there has been no change in the patient's H&P, except as documented below: Manas March MD Jan 29, 2020 12:32
[2020-01-29] MEDS ORDERED: Rate Change PCA 1 Each MISC PRN ×2 (12:45→14:00)
[2020-01-29] MEDS ORDERED: PCA Education Pamphlet MISC ONE ×2 (12:45→14:00)
[2020-01-29] MEDS ORDERED: Acetaminophen (Non formulary) 100 ML IV ONE (13:15)
[2020-01-29] MEDS ORDERED: Morphine Sulfate 10mg/ml Inj ONE (13:58)
[2020-01-29] MEDS ORDERED: DiphenhydrAMINE 50mg/ml Inj IVP PRN (14:00)
[2020-01-29] MEDS ORDERED: LR 1000ml 1,000 ML IVLG SCH (14:00)
[2020-01-29] MEDS ORDERED: PCA HYDROmorphone 1mg/ml 30 ML IV PRN ×2 (14:00→16:01)
[2020-01-29] MEDS ORDERED: Meperidine 25mg/1ml Inj (FOR RIGORS ONLY) IV PRN (14:00)
[2020-01-29] MEDS ORDERED: Ketorolac 30mg Inj IV PRN (14:00)
[2020-01-29] MEDS ORDERED: Naloxone 0.4mg/ml Inj IVP PRN (14:00)
[2020-01-29] MEDS ORDERED: Midazolam 2mg/2ml Inj IVP PRN (14:00)
[2020-01-29] MEDS ORDERED: Metoclopramide 10mg/2ml Inj IVP PRN (14:00)
[2020-01-29] MEDS ORDERED: Sodium Chloride 10ml vial INJ ONE (14:01)
[2020-01-29] MEDS ORDERED: Neostigmine 1mg/ml 10ml Inj ONE (14:01)
--- NOTE | 2020-01-29 15:17 | Operative Note - PDOC ---
Operative Note Operative Note Pre-op Diagnosis: Bilateral open axillary wounds Procedure: Adjacent tissue transfer closure of bilateral axillary wounds Post-op Diagnosis: same as pre-op Surgeon: Anca Cuff Maker: Elisa Anesthesia: general Specimen: none Complications: none Condition: stable Estimated Blood Loss: minimal Drains: OSCAR Implant(s) used?: No Manas March MD Jan 29, 2020 15:17
[2020-01-29] MEDS ORDERED: Albuterol ud Inhalation ONE (15:46)
--- NOTE | 2020-01-29 15:56 | Immediate Post-Op Evaluation ---
Immediate Post-Op Evalulation Immediate Post-Op Evalulation Procedure: Revision and closure of bilateral axillary wounds Date of Evaluation: Jan 29, 2020 Time of Evaluation: 15:55 IV Fluids: 1400 Blood Products: none Estimated Blood Loss: 50 Urinary Output: 350 Blood Pressure Systolic: 148 Blood Pressure Diastolic: 76 Pulse Rate: 86 Respiratory Rate: 22 O2 Sat by Pulse Oximetry: 97 Temperature (Fahrenheit): 98.6 Pain Score (1-10): 2 Nausea: No Vomiting: No Complications none Patient Status: reacts, patent, extubated, none Hydration Status: adequate Zeke Henry MD Jan 29, 2020 15:56
--- NOTE | 2020-01-29 16:19 | 48 Hour Post Anesthesia Eval ---
Post Anesthesia Evaluation Procedure: Revision and closure of bilateral axillary wounds Date of Evaluation: Jan 29, 2020 Time of Evaluation: 16:18 Blood Pressure Systolic: 154 0: 76 Pulse Rate: 84 Respiratory Rate: 22 Temperature (Fahrenheit): 98.1 O2 Sat by Pulse Oximetry: 98 Airway: patent Nausea: No Vomiting: No Pain Intensity: 3 Hydration Status: adequate Cardiopulmonary Status: stable Mental Status/LOC: patient returned to baseline Follow-up Care/Observations: n/a Post-Anesthesia Complications: none Follow-up care needed: N/A Zeke Henry MD Jan 29, 2020 16:19
--- NOTE | 2020-01-29 17:45 | Operative Note - Dictated ---
DATE OF OPERATION: 01/29/2020 PREOPERATIVE DIAGNOSIS: Bilateral open axillary wounds, status post excision of infected stage III hidradenitis with a previous flap elevation resulting in a right-sided defect that measures 17 x 15 cm and a left-sided defect that measured 16 x 14 cm. POSTOPERATIVE DIAGNOSIS: Bilateral open axillary wounds, status post excision of infected stage III hidradenitis with a previous flap elevation resulting in a right-sided defect that measures 17 x 15 cm and a left-sided defect that measured 16 x 14 cm. PROCEDURES: 1. Adjacent tissue transfer closure of left axillary wound measuring 17 x 15 cm. 2. Adjacent tissue transfer closure of right axillary wound measuring 16 x 14 cm. SURGEON: Manas March M.D. ELECTROLYSIST: Traci Pérez M.D. ANESTHESIA: General. COMPLICATIONS: None. DRAINS: Bilateral axillary OSCAR size 15 drains. EBL: Minimal. DISPOSITION: Stable to the recovery room. INDICATIONS FOR SURGERY: This is a 24-year-old male who is now 48 hours status post radical excision of infected stage III hidradenitis suppurativa in his bilateral axillae with lateral chest wall flap elevation. At that time, due to the fact the patient had an infection, a definitive flap inset was not performed. As such, he is going to undergo definitive adjacent tissue transfer with lateral chest wall flap inset for the bilateral axillary wounds to achieve definitive soft-tissue coverage. He understood the risks and benefits of surgery and agreed to proceed. DETAILS OF THE OPERATION: The patient was brought to the operating room and laid in the supine position on the operating table. His bilateral axillary regions were prepped and draped in the sterile usual fashion. As stated previously in the first operation, both axillary diseased areas were radically excised resulting in very large defects. The defect on the left side measured 17 x 15 cm, and at the first operation a lateral chest wall flap based off of the thoracodorsal artery was elevated. This flap had to then be definitively inset today along with the mobilization of the tissues over the deltoid, pectoralis, as well as medial brachial tissues for coaptation with the flap to allow for definitive flap inset. The flap dimensions were 14 x 8 cm and this by itself clearly was not enough for complete closure of the wound. However, along with the adjacent tissue transfer, mobilization of the tissues above the deltoid, pectoralis, and the brachial tissue, and the combination of those tissues along with the lateral chest wall flap allowed for definitive closure of the very large wound. Again, the wound measured 17 x 15 cm. The flaps were then inset using 0 and 2-0 Vicryl sutures, and then a running 3-0 Prolene suture was used to close the skin. The flap was closed over a size 15 OSCAR drain. The donor site of the flap was previously closed at the first operation and the closure was further reinforced with multiple interrupted Prolene vertical mattress sutures, and again the reason for the closure at the first operation was to allow for creep or acute tissue expansion to allow for closure of the donor site, which was quite large at the first operation. We then turned our attention to the contralateral right-sided wound. This wound measured 16 x 14 cm. A corresponding flap had been designed. This flap also had similar measurement of 14 x 8 cm, however, was not sufficient by itself to close the gap or the wound itself. As such, adjacent tissue transfer, mobilization of the tissues over the deltoid muscle, the pectoralis muscle, and the brachial tissue in combination with the flap were then used to definitive closure of the wound. Prior to definitive flap inset, the wound was copiously irrigated with pulse lavage. Surgicel was placed, as was also done on the other side. A size 15 OSCAR was then also placed into the wound bed and the flap was inset using 0 and 2-0 Vicryl sutures and running 3-0 Prolene was reinforced, with interrupted 2-0 Prolene sutures used to close the skin. For both sides, a OSCAR drain suture was also placed to secure the drain. Bulky dressings were applied. The patient tolerated the procedure well. There were no complications. Manas March M.D. DR: AB JOB#: [id number] CC: [email or web address]
[2020-01-29] MEDS: Albuterol/Ipratropium 3ml neb HHN SCH ×2 (18:59→22:56)
[2020-01-29] MEDS ORDERED: PCA shift volume MISC SCH (19:00)
[2020-01-30] VITALS (7 sets, daily range): BP systolic 127–143; BP diastolic 78–91
[2020-01-30] MEDS: DiphenhydrAMINE 50mg/ml Inj IVP PRN ×4 (01:51→22:01)
[2020-01-30 06:08] LABS: BASOPHILS % (AUTO) 1.4 % (0.0-2.0); EOSINOPHILS % (AUTO) 0.3 % (0.0-3.0); HEMATOCRIT 33.6 % (42.0-52.0); HEMOGLOBIN 10.5 G/DL (14.2-18.0); LYMPHOCYTES % (AUTO) 11.7 % (20.0-45.0); MEAN CORPUSCULAR VOLUME 87 FL (80-99); MONOCYTES % (AUTO) 7.6 % (1.0-10.0); PLATELET COUNT 346 K/UL (150-450); RED BLOOD COUNT 3.88 M/UL (4.70-6.10); RED CELL DISTRIBUTION WIDTH 15.3 % (11.6-14.8); WHITE BLOOD COUNT 13.7 K/UL (4.8-10.8)
[2020-01-30 06:15] LABS: ANION GAP 4 mmol/L (5-15); BLOOD UREA NITROGEN 6 mg/dL (7-18); CALCIUM 7.5 MG/DL (8.5-10.1); CARBON DIOXIDE 33 MMOL/L (21-32); CHLORIDE 100 MMOL/L (98-107); CREATININE 0.9 MG/DL (0.55-1.30); POTASSIUM 3.3 MMOL/L (3.5-5.1); SODIUM 136 MMOL/L (136-145)
[2020-01-30] MEDS: PCA shift volume MISC SCH ×2 (07:21→19:00)
[2020-01-30] MEDS ORDERED: Magnesium Oxide 400mg tab ORAL SCH (07:44)
[2020-01-30] MEDS: Docusate 100mg cap ORAL SCH ×2 (08:25→17:17)
[2020-01-30] MEDS: Heparin 5000 units/ml inj SUBQ SCH ×2 (08:28→21:54)
--- NOTE | 2020-01-30 09:45 | General Progress Note ---
Subjective Constitutional: Denies: no symptoms, chills, diaphoresis, fever, malaise, weakness, other HEENT: Denies: no symptoms, eye pain, blurred vision, tearing, double vision, ear pain, ear discharge, nose pain, nose congestion, throat pain, throat swelling, mouth pain, mouth swelling, other Cardiovascular: Denies: no symptoms, chest pain, edema, irregular heart rate, lightheadedness, palpitations, syncope, other Respiratory: Denies: no symptoms, cough, orthopnea, shortness of breath, SOB with excertion, SOB at rest, sputum, stridor, wheezing, other Gastrointestinal/Abdominal: Denies: no symptoms, abdomen distended, abdominal pain, black stools, tarry stools, blood in stool, constipated, diarrhea, difficulty swallowing, nausea, poor appetite, poor fluid intake, rectal bleeding, vomiting, other Genitourinary: Denies: no symptoms, burning, discharge, frequency, flank pain, hematuria, incontinence, pain, urgency, other Neurologic/Psychiatric: Denies: no symptoms, anxiety, depressed, emotional problems, headache, numbness, paresthesia, pre-existing deficit, seizure, tingling, tremors, weakness, other Endocrine: Denies: no symptoms, excessive sweating, flushing, intolerance to cold, intolerance to heat, increased hunger, increased thirst, increased urine, unexplained weight gain, unexplained weight loss, other Hematologic/Lymphatic: Denies: no symptoms, anemia, easy bleeding, easy bruising, other Allergies: Coded Allergies: No Known Allergies (Unverified , 01/27/20) Subjective No acute events overnight. Patient feels well this morning. No complications from the second surgery yesterday afternoon. OSCAR drains in place bilaterally. P atient with no bowel movement in the last 4 days, encouraged that he use the stool softeners given that he is on high doses of opiates. Otherwise no new complaints today. Denies fevers, chills, dysuria, abdominal pain. Objective Last 24 Hour Vital Signs Date Time Temp Pulse Resp B/P (MAP) Pulse Ox O2 Delivery O2 Flow Rate FiO2 01/30/20 08:00 99.2 107 18 138/87 (104) 95 01/30/20 07:05 96 Room Air 21 01/30/20 03:57 96 16 98 01/30/20 03:56 99.2 96 16 143/90 (107) 98 01/30/20 00:00 95 18 97 01/30/20 00:00 98.6 95 18 140/79 (99) 97 01/29/20 22:57 86 20 100 Nasal Cannula 2.0 28 82 22 95 01/29/20 20:24 Nasal Cannula 1.0 01/29/20 20:00 92 16 98 01/29/20 20:00 99.0 92 16 138/87 (104) 98 01/29/20 18:59 94 Nasal Cannula 2.0 28 01/29/20 18:59 81 20 99 Nasal Cannula 2.0 28 76 22 94 01/29/20 17:35 98.3 77 18 135/80 (98) 98 01/29/20 17:05 80 18 98 01/29/20 17:05 98.7 80 18 132/80 (97) 98 01/29/20 16:45 97.6 74 19 148/74 100 Nasal Cannula 3 01/29/20 16:30 82 20 165/61 100 Nasal Cannula 3 01/29/20 16:19 84 22 98 01/29/20 16:15 97 15 154/66 98 Nasal Cannula 3 01/29/20 16:00 84 22 148/76 96 Simple Mask 6 01/29/20 15:56 86 22 97 01/29/20 15:50 96 20 157/81 96 Simple Mask 6 01/29/20 15:41 98.8 102 24 156/72 96 Simple Mask 6 01/29/20 12:00 01/29/20 11:58 88 16 94 01/29/20 11:55 99.4 88 18 143/78 (99) 94 Intake and Output 01/29/20 01/30/20 19:00 07:00 Intake Total 500 ml 1450 ml Output Total 390 ml 1160 ml Balance 110 ml 290 ml Intake Oral 850 ml IV Total 500 ml 600 ml Output Urine Total 350 ml 1100 ml Drainage Total 40 ml 60 ml # Voids 3 Laboratory Tests 01/30/20 05:25: White Blood Count 13.7H, Red Blood Count 3.88L, Hemoglobin 10.5L, Hematocrit 33.6L, Mean Corpuscular Volume 87, Mean Corpuscular Hemoglobin 27.1, Mean Corpuscular Hemoglobin Concent 31.3L, Red Cell Distribution Width 15.3H, Platelet Count 346, Mean Platelet Volume 6.3L, Neutrophils (%) (Auto) 79.0H, Lymphocytes (%) (Auto) 11.7L, Monocytes (%) (Auto) 7.6, Eosinophils (%) (Auto) 0.3, Basophils (%) (Auto) 1.4, Sodium Level 136, Potassium Level 3.3L, Chloride Level 100, Carbon Dioxide Level 33H, Anion Gap 4L, Blood Urea Nitrogen 6L, Creatinine 0.9, Estimat Glomerular Filtration Rate > 60, Glucose Level 99, Calcium Level 7.5L, Magnesium Level 1.6L Height (Feet): 5 Height (Inches): 11.00 Weight (Pounds): 205 General Appearance: no apparent distress, alert, alert oriented x3 EENT: PERRL/EOMI, normal ENT inspection Neck: non-tender, supple Cardiovascular: normal rate, regular rhythm, no JVD Respiratory/Chest: lungs clear, normal breath sounds Abdomen: non tender, soft Extremities: other - Bilateral surgical dressings in place clean dry and intact, bilateral OSCAR drains in place Edema: no edema noted Arm (L), no edema noted Arm (R), no edema noted Leg (L), no edema noted Leg (R), no edema noted Pedal (L), no edema noted Pedal (R), no edema noted 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 Grayson is a 24-year-old male with past medical history of bilateral hidradenitis suppurative anxiety who presented as a postop A: #Bilateral hidradenitis status post excision and flap elevation on 1118 and 1120 #Leukocytosis likely reactiveimproved #Anemia likely postop loss #Bilateral HS in axillary, back #Postop pain #Anxiety P: No acute complications from second surgery yesterday, patient doing well this morning Hemodynamically stable, no respiratory compromise Saturating well on room air, keep O2 sats greater 90% Leukocytosis persists at 13, likely surgery, will just monitor for now Mild postop anemia, monitor CBC Pain control, currently on DATA SME pump, discussed with patient he has option of IV morphine as needed and [place] oral as needed Monitor respiratory status Bowel regimen Continue home Lexapro Continue clonazepam as needed for anxiety as patient takes benzos at home as well IVF Code: Full GI none DVT prophylaxis: Heparin 5000 mg twice daily Diet: Regular Dispo: Pending postop recovery, clearance from Dr. March Time spent on this encounter was 35 minutes which included 21 minutes of counseling and care coordination. I discussed with the nurse at bedside. Time of note may not reflect time patient was seen. Ildefonso Saldivar D.O Jan 30, 2020 09:45
[2020-01-30] MEDS: clonazePAM 0.5mg tab ORAL PRN (21:51)
[2020-01-31 04:00] VITALS: BP 148/96
[2020-01-31] MEDS: DiphenhydrAMINE 50mg/ml Inj IVP PRN ×3 (04:34→17:33)
[2020-01-31 07:02] LABS: HEMATOCRIT 34.6 % (42.0-52.0); HEMOGLOBIN 10.8 G/DL (14.2-18.0); MEAN CORPUSCULAR VOLUME 86 FL (80-99); PLATELET COUNT 398 K/UL (150-450); RED BLOOD COUNT 4.02 M/UL (4.70-6.10); RED CELL DISTRIBUTION WIDTH 15.4 % (11.6-14.8); WHITE BLOOD COUNT 19.5 K/UL (4.8-10.8)
[2020-01-31 07:08] LABS: ANION GAP 9 mmol/L (5-15); BLOOD UREA NITROGEN 4 mg/dL (7-18); CALCIUM 8.2 MG/DL (8.5-10.1); CARBON DIOXIDE 27 MMOL/L (21-32); CHLORIDE 99 MMOL/L (98-107); CREATININE 0.8 MG/DL (0.55-1.30); POTASSIUM 3.8 MMOL/L (3.5-5.1); SODIUM 135 MMOL/L (136-145)
[2020-01-31] MEDS: PCA shift volume MISC SCH ×2 (07:36→19:33)
[2020-01-31 08:00] VITALS: BP 119/62
[2020-01-31] MEDS: Docusate 100mg cap ORAL SCH ×2 (08:18→17:33)
[2020-01-31] MEDS: cefTRIAXone 1gm/D5W 55ml IVPB SCH ×2 (08:18)
[2020-01-31] MEDS: Heparin 5000 units/ml inj SUBQ SCH ×2 (08:19→21:30)
--- NOTE | 2020-01-31 09:36 | General Progress Note ---
Subjective Constitutional: Denies: no symptoms, chills, diaphoresis, fever, malaise, weakness, other HEENT: Denies: no symptoms, eye pain, blurred vision, tearing, double vision, ear pain, ear discharge, nose pain, nose congestion, throat pain, throat swelling, mouth pain, mouth swelling, other Cardiovascular: Denies: no symptoms, chest pain, edema, irregular heart rate, lightheadedness, palpitations, syncope, other Respiratory: Denies: no symptoms, cough, orthopnea, shortness of breath, SOB with excertion, SOB at rest, sputum, stridor, wheezing, other Gastrointestinal/Abdominal: Denies: no symptoms, abdomen distended, abdominal pain, black stools, tarry stools, blood in stool, constipated, diarrhea, difficulty swallowing, nausea, poor appetite, poor fluid intake, rectal bleeding, vomiting, other Genitourinary: Denies: no symptoms, burning, discharge, frequency, flank pain, hematuria, incontinence, pain, urgency, other Neurologic/Psychiatric: Denies: no symptoms, anxiety, depressed, emotional problems, headache, numbness, paresthesia, pre-existing deficit, seizure, tingling, tremors, weakness, other Endocrine: Denies: no symptoms, excessive sweating, flushing, intolerance to cold, intolerance to heat, increased hunger, increased thirst, increased urine, unexplained weight gain, unexplained weight loss, other Hematologic/Lymphatic: Denies: no symptoms, anemia, easy bleeding, easy bruising, other Allergies: Coded Allergies: No Known Allergies (Unverified , 01/27/20) Subjective Yesterday afternoon T-max 100.4. Patient otherwise feels well this morning no other acute events. Denies any fevers, chills, chest pain, shortness of breath, cough, dysuria, joint pains, rash. He has been off CORRECTIONAL THERAPY DIRECTOR pump for the last 4 hours. Notes pain has been improving. Overall feels better today. Objective Last 24 Hour Vital Signs Date Time Temp Pulse Resp B/P (MAP) Pulse Ox O2 Delivery O2 Flow Rate FiO2 01/31/20 07:50 95 Room Air 21 01/31/20 06:11 98.7 01/31/20 04:00 99.9 95 17 148/96 (113) 96 01/31/20 04:00 95 01/31/20 00:00 98 01/30/20 21:00 Room Air 01/30/20 20:22 95 Room Air 21 01/30/20 20:00 98.9 96 18 130/80 (97) 96 01/30/20 20:00 97 01/30/20 16:00 97 01/30/20 16:00 98.5 112 20 127/91 (103) 97 01/30/20 14:03 99.0 01/30/20 12:00 101.5 113 19 134/78 (96) 97 01/30/20 12:00 97 Intake and Output 01/30/20 01/31/20 19:00 07:00 Intake Total 600 ml 480 ml Output Total 900 ml 1050 ml Balance -300 ml -570 ml Intake Oral 600 ml 480 ml Output Urine Total 900 ml 1000 ml Drainage Total 50 ml # Voids 3 3 Laboratory Tests 01/31/20 05:10: White Blood Count 19.5H, Red Blood Count 4.02L, Hemoglobin 10.8L, Hematocrit 34.6L, Mean Corpuscular Volume 86, Mean Corpuscular Hemoglobin 26.8L, Mean Corpuscular Hemoglobin Concent 31.2L, Red Cell Distribution Width 15.4H, Platelet Count 398, Mean Platelet Volume 6.1L, Neutrophils (%) (Auto) , Lymphocytes (%) (Auto) , Monocytes (%) (Auto) , Eosinophils (%) (Auto) , Basophils (%) (Auto) , Differential Total Cells Counted 100, Neutrophils % (Manual) 77H, Lymphocytes % (Manual) 16L, Monocytes % (Manual) 4, Eosinophils % (Manual) 3, Basophils % (Manual) 0, Band Neutrophils 0, Platelet Estimate Ad equate, Platelet Morphology Normal, Hypochromasia 1+, Anisocytosis 1+, Sodium Level 135L, Potassium Level 3.8, Chloride Level 99, Carbon Dioxide Level 27, Anion Gap 9, Blood Urea Nitrogen 4L, Creatinine 0.8, Estimat Glomerular Filtration Rate > 60, Glucose Level 76, Calcium Level 8.2L, Magnesium Level 1.9 Height (Feet): 5 Height (Inches): 11.00 Weight (Pounds): 205 General Appearance: no apparent distress, alert, alert oriented x3 EENT: PERRL/EOMI, normal ENT inspection Neck: non-tender, supple Cardiovascular: normal rate, regular rhythm, no JVD Respiratory/Chest: lungs clear, normal breath sounds, no respiratory distress Abdomen: normal bowel sounds, non tender, soft Extremities: normal range of motion, other - Bilateral axillary surgical dressings intact, OSCAR drains as well in place bilaterally Edema: no edema noted Arm (L), no edema noted Arm (R), no edema noted Leg (L), no edema noted Leg (R), no edema noted Pedal (L), no edema noted Pedal (R), no edema noted Generalized Neurologic: hose tender II-XII grossly normal, alert, oriented x 3 Skin: normal pigmentation, warm/dry Assessment/Plan Assessment/Plan: Mr. Grayson is a 24-year-old male with past medical history of bilateral hidradenitis suppurative anxiety who presented as a postop A: #Bilateral hidradenitis status post excision and flap elevation on 1118 and 1120 #Leukocytosis likely reactiveelevated today #Anemia likely postop loss #Bilateral HS in axillary, back #Postop pain #Anxiety P: Elevated WBCs, with a T-max of 101.5 yesterday afternoon, however patient clinically feels better today. Clinically no signs or symptoms for true infection. However we will do septic work-up given elevated inflammatory markers Follow-up blood cultures, UA, chest x-ray We will start Rocephin empirically, follow cultures Hemodynamically stable, no respiratory compromise Pain control much better today, has not used CORRECTIONAL THERAPY DIRECTOR pump over last several hours Wound care and postop surgical management per surgery Bowel regimen Continue home Lexapro Continue clonazepam as needed for anxiety as patient takes benzos at home as well [facility] - for wound care Code: Full GI none DVT prophylaxis: Heparin 5000 mg twice daily Diet: Regular Dispo: Likely discharge in a few days Time spent on this encounter was 42 minutes which included 25 minutes of counseling and care coordination. I discussed with the nurse at bedside. Time of note may not reflect time patient was seen. Ildefonso Saldivar D.O Jan 31, 2020 09:35
--- NOTE | 2020-01-31 09:41 | General Progress Note ---
Progress Note Progress Note Pt seen and examined. POD# 2 from flap closure. Elevated WBC. Will need work up of it. Dressings intact. Will remove and exmaine wounds in 24-48 hours. Plan for dc this week. Will need to arrange for home health wound care. MD Anca Ramon Amir MD Jan 31, 2020 09:41
--- NOTE | 2020-01-31 09:42 | Operative Note - PDOC ---
Operative Note Operative Note Date of Operation/Procedure: Jan 27, 2020 Pre-op Diagnosis: Bilateral axillary HS Procedure: Radical excision of bilateral axillary HS with flap elevation Post-op Diagnosis: same as pre-op Surgeon: Anca Water Pollution Control Inspector: Elisa Anesthesia: general Specimen: none Complications: none Condition: stable Estimated Blood Loss: minimal Drains: none Implant(s) used?: No Manas March MD Jan 31, 2020 09:42
[2020-01-31 11:25] LABS: APPEARANCE,URINE CLEAR; BILIRUBIN, URINE NEGATIVE (NEGATIVE); COLOR,URINE PALE YELLOW; GLUCOSE, URINE (UA) NEGATIVE (NEGATIVE); KETONES,URINE 1+ (NEGATIVE); LEUKOCYTE ESTERASE ,URINE NEGATIVE (NEGATIVE); NITRITE,URINE NEGATIVE (NEGATIVE); PH,URINE 8 (4.5-8.0); PROTEIN,URINE NEGATIVE (NEGATIVE); UROBILINOGEN,URINE NORMAL MG/DL (0.0-1.0)
[2020-01-31 12:00] VITALS: BP 122/76
[2020-01-31 15:55] VITALS: BP 136/92
[2020-01-31] MEDS ORDERED: Rate Change PCA 1 Each MISC PRN (19:15)
[2020-01-31 20:00] VITALS: BP 139/79
[2020-02-01] VITALS: BP 124/79
[2020-02-01] MEDS: DiphenhydrAMINE 50mg/ml Inj IVP PRN ×4 (01:13→23:36)
[2020-02-01 04:00] VITALS: BP 115/70
[2020-02-01] MEDS: PCA HYDROmorphone 1mg/ml 30 ML IV PRN (04:36)
[2020-02-01 06:52] LABS: HEMATOCRIT 33.9 % (42.0-52.0); HEMOGLOBIN 10.6 G/DL (14.2-18.0); MEAN CORPUSCULAR VOLUME 86 FL (80-99); PLATELET COUNT 463 K/UL (150-450); RED BLOOD COUNT 3.94 M/UL (4.70-6.10); RED CELL DISTRIBUTION WIDTH 14.7 % (11.6-14.8); WHITE BLOOD COUNT 20.6 K/UL (4.8-10.8)
[2020-02-01] MEDS: PCA shift volume MISC SCH ×2 (07:00→19:11)
[2020-02-01 07:31] LABS: BLOOD UREA NITROGEN 6 mg/dL (7-18); CALCIUM 8.2 MG/DL (8.5-10.1); CARBON DIOXIDE 24 MMOL/L (21-32); CHLORIDE 98 MMOL/L (98-107); CREATININE 0.9 MG/DL (0.55-1.30); POTASSIUM 3.6 MMOL/L (3.5-5.1); SODIUM 134 MMOL/L (136-145)
[2020-02-01 08:00] VITALS: BP 139/83
[2020-02-01] MEDS: Docusate 100mg cap ORAL SCH ×2 (08:50→17:37)
[2020-02-01] MEDS: cefTRIAXone 1gm/D5W 55ml IVPB SCH ×2 (08:51)
[2020-02-01] MEDS: Heparin 5000 units/ml inj SUBQ SCH ×2 (08:52→20:33)
--- NOTE | 2020-02-01 09:44 | General Progress Note ---
Subjective Constitutional: Denies: no symptoms, chills, diaphoresis, fever, malaise, weakness, other HEENT: Denies: no symptoms, eye pain, blurred vision, tearing, double vision, ear pain, ear discharge, nose pain, nose congestion, throat pain, throat swelling, mouth pain, mouth swelling, other Cardiovascular: Denies: no symptoms, chest pain, edema, irregular heart rate, lightheadedness, palpitations, syncope, other Respiratory: Denies: no symptoms, cough, orthopnea, shortness of breath, SOB with excertion, SOB at rest, sputum, stridor, wheezing, other Gastrointestinal/Abdominal: Denies: no symptoms, abdomen distended, abdominal pain, black stools, tarry stools, blood in stool, constipated, diarrhea, difficulty swallowing, nausea, poor appetite, poor fluid intake, rectal bleeding, vomiting, other Genitourinary: Denies: no symptoms, burning, discharge, frequency, flank pain, hematuria, incontinence, pain, urgency, other Neurologic/Psychiatric: Denies: no symptoms, anxiety, depressed, emotional problems, headache, numbness, paresthesia, pre-existing deficit, seizure, tingling, tremors, weakness, other Endocrine: Denies: no symptoms, excessive sweating, flushing, intolerance to cold, intolerance to heat, increased hunger, increased thirst, increased urine, unexplained weight gain, unexplained weight loss, other Hematologic/Lymphatic: Denies: no symptoms, anemia, easy bleeding, easy bruising, other Allergies: Coded Allergies: No Known Allergies (Unverified , 01/27/20) Subjective T-max 99.6. Slightly tachycardic today. Persistent elevated WBCs at 20 today. Patient otherwise feels well this morning, no new complaints. Denies fevers, chills, chest pain, shortness of breath, abdominal pain or nausea, vomiting, diarrhea, dysuria, rash. He still requires ELECTRONIC SERVICE TECHNICIAN pump every few hours. Objective Last 24 Hour Vital Signs Date Time Temp Pulse Resp B/P (MAP) Pulse Ox O2 Delivery O2 Flow Rate FiO2 02/01/20 08:30 96 Room Air 21 02/01/20 08:00 97 02/01/20 08:00 99.0 108 19 139/83 (101) 97 02/01/20 04:00 96 02/01/20 04:00 99.0 103 20 115/70 (85) 97 02/01/20 00:00 99.6 105 20 124/79 (94) 97 02/01/20 00:00 97 01/31/20 21:00 Room Air 01/31/20 20:00 99.4 99 20 139/79 (99) 97 01/31/20 20:00 97 01/31/20 19:53 96 Room Air 21 01/31/20 15:55 97 01/31/20 15:55 99.5 107 20 136/92 (107) 97 01/31/20 15:44 99.5 01/31/20 12:00 98.4 102 20 122/76 (91) 97 01/31/20 12:00 97 Intake and Output 01/31/20 02/01/20 19:00 07:00 Intake Total 720 ml 480 ml Output Total 90 ml 38 ml Balance 630 ml 442 ml Intake Oral 720 ml 480 ml Drainage Total 90 ml 38 ml # Voids 3 Laboratory Tests 01/31/20 10:30: Urine Color Pale yellow, Urine Appearance Clear, Urine pH 8, Urine Specific [place] 1.010, Urine Protein Negative, Urine Glucose (UA) Negative, Urine Ketones 1+H, Urine Blood Negative, Urine Nitrite Negative, Urine Bilirubin Negative, Urine Urobilinogen Normal, Urine Leukocyte Esterase Negative 02/01/20 05:05: White Blood Count 20.6H, Red Blood Count 3.94L, Hemoglobin 10.6L, Hematocrit 33.9L, Mean Corpuscular Volume 86, Mean Corpuscular Hemoglobin 26.9L, Mean Cor puscular Hemoglobin Concent 31.2L, Red Cell Distribution Width 14.7, Platelet Count 463H, Mean Platelet Volume 5.9L, Neutrophils (%) (Auto) , Lymphocytes (%) (Auto) , Monocytes (%) (Auto) , Eosinophils (%) (Auto) , Basophils (%) (Auto) , Differential Total Cells Counted 100, Neutrophils % (Manual) 82H, Lymphocytes % (Manual) 6L, Monocytes % (Manual) 9, Eosinophils % (Manual) 3, Basophils % (Manual) 0, Band Neutrophils 0, Platelet Estimate Adequate, Platelet Morphology Normal, Hypochromasia 1+, Anisocytosis 1+, Sodium Level 134L, Potassium Level 3.6, Chloride Level 98, Carbon Dioxide Level 24, Blood Urea Nitrogen 6L, Creatinine 0.9, Estimat Glomerular Filtration Rate > 60, Glucose Level 73L, Calcium Level 8.2L, Magnesium Level 1.9 Height (Feet): 5 Height (Inches): 11.00 Weight (Pounds): 205 General Appearance: no apparent distress, alert, alert oriented x3 EENT: PERRL/EOMI, normal ENT inspection Cardiovascular: regular rhythm, no JVD, tachycardia Respiratory/Chest: lungs clear, normal breath sounds Abdomen: normal bowel sounds, non tender, soft Extremities: normal range of motion, other - Bilateral upper axillaries with surgical dressing, clean, dry intact, bilateral OSCAR drains in place Edema: no edema noted Arm (L), no edema noted Arm (R), no edema noted Leg (L), no edema noted Leg (R), no edema noted Pedal (L), no edema noted Pedal (R), no edema noted 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 Grayson is a 24-year-old male with past medical history of bilateral hidradenitis suppurative anxiety who presented as a postop A: #Bilateral hidradenitis status post excision and flap elevation on 1118 and 1120 #SIRS w/ leukocytosis plus tachycardia #Anemia likely postop loss #Bilateral HS in axillary, back #Postop pain #Anxiety P: Persistent leukocytosis, slightly tachycardic, with low-grade temp: However patient clinically feels well this morning with no complaints. Very low suspicion of infectious etiology. Still awaiting cultures. Follow-up blood cultures, chest x-ray UA negative for infection, MRSA screen negative Continue Rocephin empirically, follow cultures Pathology report showing benign tissue hidradenitis suppurative Pain control still requiring ELECTRONIC SERVICE TECHNICIAN pump every few hours Wound care and postop surgical management per surgery Bowel regimen Continue home Lexapro Continue clonazepam as needed for anxiety as patient takes benzos at home as well IVF Consult , ID, for clearance of discharge given persistent SIRS criteria -CM for wound care in [facility] where patient will be traveling to on Saturday Code: Full GI none DVT prophylaxis: Heparin 5000 mg twice daily Diet: Regular Dispo: Discharge in a few days back to [facility] with home health there Time spent on this encounter was 41 minutes which included 25 minutes of counseling and care coordination. I discussed with the nurse at bedside. Time of note may not reflect time patient was seen. Ildefonso Saldivar D.O Feb 01, 2020 09:44
--- NOTE | 2020-02-01 10:06 | General Progress Note ---
Progress Note Progress Note Pt seen and examined. POD # 3 from adjacent tissue transfer closure of axillary wounds. Dressings intact. Left OSCAR drain became loose and had to be removed. Pt has persistent leukocytosis but clinically stable. Will have ID give their input. Will need to arrange for discharge and home health wound care. Manas Jones MD, MD Feb 01, 2020 10:06
[2020-02-01] MEDS ORDERED: Milk of Magnesia 30ml Ud ORAL PRN ×2 (10:15→12:45)
[2020-02-01] MEDS ORDERED: Sennosides 8.6mg tab ORAL SCH (11:00)
[2020-02-01 12:00] VITALS: BP 126/79
--- NOTE | 2020-02-01 12:54 | Diagnostic Imaging Report ---
Indication: Cough Technique: One view of the chest Comparison: none Findings: Surgical staple lines are seen in the bilateral lower chest chang laterally. There appears to be a surgical drain in the right axilla. The lungs and pleural spaces are clear. The heart size is normal Impression: No acute process
--- NOTE | 2020-02-01 13:31 | Infectious Diseases Prog Note ---
Assessment/Plan Assessment/Plan Full consult to follow: A) 1) leukocytosis, fevers - ? source, post-op - 01/29/20 2) axilla hidradenitis suppurativa - s/p excision and closure 3) pmh noted 4) allergies - nkda P) 1) ceftriaxone and flagyl 2) f/u on cultures and labs 3) urinalysis and chest x-ray both negative 4) thank you Subjective Allergies: Coded Allergies: No Known Allergies (Unverified , 01/27/20) Objective Last 24 Hour Vital Signs Date Time Temp Pulse Resp B/P (MAP) Pulse Ox O2 Delivery O2 Flow Rate FiO2 02/01/20 12:00 98.5 106 19 126/79 (95) 97 02/01/20 12:00 97 02/01/20 09:00 Room Air 02/01/20 08:30 96 Room Air 21 02/01/20 08:00 97 02/01/20 08:00 99.0 108 19 139/83 (101) 97 02/01/20 04:00 96 02/01/20 04:00 99.0 103 20 115/70 (85) 97 02/01/20 00:00 99.6 105 20 124/79 (94) 97 02/01/20 00:00 97 01/31/20 21:00 Room Air 01/31/20 20:00 99.4 99 20 139/79 (99) 97 01/31/20 20:00 97 01/31/20 19:53 96 Room Air 21 01/31/20 15:55 97 01/31/20 15:55 99.5 107 20 136/92 (107) 97 01/31/20 15:44 99.5 Height (Feet): 5 Height (Inches): 11.00 Weight (Pounds): 205 Laboratory Tests Test 02/01/20 05:05 White Blood Count 20.6 K/UL (4.8-10.8) H Red Blood Count 3.94 M/UL (4.70-6.10) L Hemoglobin 10.6 G/DL (14.2-18.0) L Hematocrit 33.9 % (42.0-52.0) L Mean Corpuscular Volume 86 FL (80-99) Mean Corpuscular Hemoglobin 26.9 PG (27.0-31.0) L Mean Corpuscular Hemoglobin Concent 31.2 G/DL (32.0-36.0) L Red Cell Distribution Width 14.7 % (11.6-14.8) Platelet Count 463 K/UL (150-450) H Mean Platelet Volume 5.9 FL (6.5-10.1) L Neutrophils (%) (Auto) % (45.0-75.0) Lymphocytes (%) (Auto) % (20.0-45.0) Monocytes (%) (Auto) % (1.0-10.0) Eosinophils (%) (Auto) % (0.0-3.0) Basophils (%) (Auto) % (0.0-2.0) Differential Total Cells Counted 100 Neutrophils % (Manual) 82 % (45-75) H Lymphocytes % (Manual) 6 % (20-45) L Monocytes % (Manual) 9 % (1-10) Eosinophils % (Manual) 3 % (0-3) Basophils % (Manual) 0 % (0-2) Band Neutrophils 0 % (0-8) Platelet Estimate Adequate Platelet Morphology Normal Hypochromasia 1+ Anisocytosis 1+ Sodium Level 134 MMOL/L (136-145) L Potassium Level 3.6 MMOL/L (3.5-5.1) Chloride Level 98 MMOL/L (98-107) Carbon Dioxide Level 24 MMOL/L (21-32) Blood Urea Nitrogen 6 mg/dL (7-18) L Creatinine 0.9 MG/DL (0.55-1.30) Estimat Glomerular Filtration Rate > 60 mL/min (>60) Glucose Level 73 MG/DL (74-106) L Calcium Level 8.2 MG/DL (8.5-10.1) L Magnesium Level 1.9 MG/DL (1.8-2.4) Current Medications Medications (Trade) Dose Ordered Sig/Jami Route PRN Reason Start Time Stop Time Status Last Admin Dose Admin Acetaminophen (Tylenol) 650 mg Q4H PRN ORAL Temp >100.5 01/27/20 20:00 02/26/20 19:59 01/31/20 14:13 Albuterol/ Ipratropium (Albuterol/ Ipratropium) 3 ml Q4H PRN HHN Shortness of Breath 01/27/20 20:00 02/01/20 19:59 Ceftriaxone Sodium 1 gm/ Dextrose 55 ml @ 110 mls/hr Q24H IVPB 01/31/20 09:00 02/07/20 08:59 02/01/20 08:51 Clonazepam (KlonoPIN) 0.5 mg Q12H PRN ORAL For Anxiety 01/28/20 18:00 02/04/20 17:59 01/30/20 21:51 Dextrose (Dextrose 50%) 25 ml Q30M PRN IV Hypoglycemia 01/27/20 20:00 04/26/20 19:59 Dextrose (Dextrose 50%) 50 ml Q30M PRN IV Hypoglycemia 01/27/20 20:00 04/26/20 19:59 Diphenhydramine HCl (Benadryl) 25 mg Q6H PRN IVP Itching 01/31/20 17:15 03/01/20 17:14 02/01/20 09:05 Docusate Sodium (Colace) 100 mg TWICE A DAY ORAL 01/28/20 09:00 02/27/20 08:59 02/01/20 08:50 Escitalopram Oxalate (Lexapro) 10 mg Q24H ORAL 01/30/20 14:30 02/29/20 14:29 01/31/20 14:08 Heparin Sodium (Porcine) (Heparin 5000 units/ml) 5,000 units EVERY 12 HOURS SUBQ 01/29/20 21:00 03/14/20 20:59 02/01/20 08:52 Hydromorphone HCl 30 ml @ 0 mls/hr Q24H PRN IV For Pain 01/31/20 19:15 02/02/20 19:14 02/01/20 04:36 Hydroxyzine HCl (Vistaril) 10 mg Q6H PRN ORAL Itching 01/30/20 18:15 02/29/20 18:14 02/01/20 05:19 Magnesium Hydroxide (Mom) 30 ml HSPRN PRN ORAL Constipation 02/01/20 12:45 03/02/20 12:44 Miscellaneous Medication (WELL LOGGING OPERATOR MUD ANALYSIS Rate Change) 1 ea DAILY PRN MISC rate change 01/31/20 19:15 02/02/20 19:14 Miscellaneous Medication (WELL LOGGING OPERATOR MUD ANALYSIS shift volume) 1 ea Q12HR@0700,1900 MISC 01/31/20 19:15 02/02/20 19:14 02/01/20 07:00 Sennosides (Senokot) 8.6 mg DAILY ORAL 02/02/20 09:00 03/03/20 08:59 Sodium Chloride 1,000 ml @ 75 mls/hr [id number] IV 01/28/20 08:00 02/27/20 07:59 02/01/20 05:20 Maykel Hernandez MD Feb 01, 2020 13:31
[2020-02-01 16:00] VITALS: BP 142/83
[2020-02-01 20:38] VITALS: BP 133/73
[2020-02-01] MEDS: clonazePAM 0.5mg tab ORAL PRN (21:43)
[2020-02-02] VITALS (7 sets, daily range): BP systolic 119–134; BP diastolic 70–85
[2020-02-02] MEDS: PCA HYDROmorphone 1mg/ml 30 ML IV PRN (05:09)
[2020-02-02 06:15] LABS: HEMATOCRIT 34.2 % (42.0-52.0); HEMOGLOBIN 10.9 G/DL (14.2-18.0); MEAN CORPUSCULAR VOLUME 85 FL (80-99); PLATELET COUNT 520 K/UL (150-450); RED BLOOD COUNT 4.01 M/UL (4.70-6.10); RED CELL DISTRIBUTION WIDTH 14.9 % (11.6-14.8); WHITE BLOOD COUNT 18.2 K/UL (4.8-10.8)
[2020-02-02 06:45] LABS: ANION GAP 9 mmol/L (5-15); BLOOD UREA NITROGEN 5 mg/dL (7-18); CALCIUM 8.2 MG/DL (8.5-10.1); CARBON DIOXIDE 27 MMOL/L (21-32); CHLORIDE 99 MMOL/L (98-107); CREATININE 0.9 MG/DL (0.55-1.30); POTASSIUM 3.9 MMOL/L (3.5-5.1); SODIUM 135 MMOL/L (136-145)
[2020-02-02] MEDS: PCA shift volume MISC SCH ×2 (07:35→19:00)
[2020-02-02] MEDS: Heparin 5000 units/ml inj SUBQ SCH ×2 (08:38→20:44)
[2020-02-02] MEDS: Docusate 100mg cap ORAL SCH ×2 (08:38→17:56)
[2020-02-02] MEDS: Sennosides 8.6mg tab ORAL SCH (08:39)
[2020-02-02] MEDS: cefTRIAXone 1gm/D5W 55ml IVPB SCH ×2 (08:41)
--- NOTE | 2020-02-02 09:04 | General Progress Note ---
Progress Note Progress Note Pt seen and examined. POD # 4. Doing well. Dressings taken down and both flaps are fully viable. Drains removed. Plan for dc home tomorrow. MD Anca Ramon Amir MD Feb 02, 2020 09:04
[2020-02-02] MEDS ORDERED: CEFTRIAXONE1 G2 IV (11:05)
[2020-02-02] MEDS ORDERED: FLAGYL500 MG/100 IV (11:05)
[2020-02-02] MEDS ORDERED: SENNA8.6 M2 ORAL (11:05)
--- NOTE | 2020-02-02 11:07 | Discharge Instructions ---
Discharge Instructions Discharge Instructions Follow up with: primary care physician in 7 days Call MD/Return to Hospital if: symptoms worsen or fail to improve Services at Discharge: home health services Diet: regular Activity: as tolerated For Surgical Patients Dressing Care: keep dry and clean Contact your physician for: bleeding, redness, swelling Jamil Taylor M.D. Feb 02, 2020 11:07
[2020-02-02] MEDS ORDERED: LEXAPRO10 MG ORAL (11:15)
[2020-02-02] MEDS ORDERED: NORCO 5-325 TA1 EAC1 ORAL (11:15)
[2020-02-02] MEDS ORDERED: BACTRIM DS TAB1 EAC1 ORAL (16:15)
[2020-02-02] MEDS ORDERED: AUGMENTIN 875-1 EAC1 ORAL (16:15)
--- NOTE | 2020-02-02 17:42 | Infectious Diseases Prog Note ---
Assessment/Plan Assessment/Plan Full consult dictated: A) 1) leukocytosis, fevers - ? source, post-op - 01/29/20, ? sepsis but patient looks stable 2) axilla hidradenitis suppurativa - s/p excision and closure of infected wound 3) pmh noted 4) allergies - nkda P) 1) ceftriaxone and flagyl 2) f/u on cultures and labs 3) urinalysis and chest x-ray both negative 4) can discharge on augmentin and bactrim x 7 days 5) d/w primary care team Subjective Constitutional: Denies: fever HEENT: Denies: congestion Respiratory: Denies: shortness of breath Cardiovascular: Denies: chest pain Gastrointestinal/Abdominal: Denies: nausea, vomiting, diarrhea Genitourinary: Reports: other - no turcios Allergies: Coded Allergies: No Known Allergies (Unverified , 01/27/20) Objective Last 24 Hour Vital Signs Date Time Temp Pulse Resp B/P (MAP) Pulse Ox O2 Delivery O2 Flow Rate FiO2 02/02/20 16:20 98.9 108 18 124/70 (88) 98 02/02/20 12:00 98.4 107 18 126/85 (99) 99 02/02/20 10:50 95 Room Air 21 02/02/20 08:00 18 98 02/02/20 08:00 Room Air 02/02/20 07:40 98.6 106 18 127/73 (91) 98 02/02/20 04:00 98.3 104 20 128/80 (96) 97 02/02/20 00:00 98.6 101 20 134/72 (92) 98 02/01/20 21:00 Room Air 02/01/20 20:38 98.8 103 20 133/73 (93) 98 02/01/20 20:00 95 Room Air 21 Height (Feet): 5 Height (Inches): 11.00 Weight (Pounds): 205 General Appearance: no acute distress HEENT: normocephalic, atraumatic, anicteric Respiratory/Chest: lungs clear, normal breath sounds, no respiratory distress Cardiovascular: normal rate, regular rhythm Abdomen: normal bowel sounds, soft, non tender, no organomegaly, non distended Genitourinary: other - no turcios Microbiology Date/Time Source Procedure Growth Status 01/31/20 10:35 Blood Blood Culture - Preliminary NO GROWTH AFTER 24 HOURS Resulted 01/31/20 10:30 Blood Blood Culture - Preliminary NO GROWTH AFTER 24 HOURS Resulted Laboratory Tests Test 02/02/20 04:30 White Blood Count 18.2 K/UL (4.8-10.8) H Red Blood Count 4.01 M/UL (4.70-6.10) L Hemoglobin 10.9 G/DL (14.2-18.0) L Hematocrit 34.2 % (42.0-52.0) L Mean Corpuscular Volume 85 FL (80-99) Mean Corpuscular Hemoglobin 27.1 PG (27.0-31.0) Mean Corpuscular Hemoglobin Concent 31.7 G/DL (32.0-36.0) L Red Cell Distribution Width 14.9 % (11.6-14.8) H Platelet Count 520 K/UL (150-450) H Mean Platelet Volume 6.0 FL (6.5-10.1) L Neutrophils (%) (Auto) % (45.0-75.0) Lymphocytes (%) (Auto) % (20.0-45.0) Monocytes (%) (Auto) % (1.0-10.0) Eosinophils (%) (Auto) % (0.0-3.0) Basophils (%) (Auto) % (0.0-2.0) Differential Total Cells Counted 100 Neutrophils % (Manual) 77 % (45-75) H Lymphocytes % (Manual) 9 % (20-45) L Monocytes % (Manual) 11 % (1-10) H Eosinophils % (Manual) 3 % (0-3) Basophils % (Manual) 0 % (0-2) Band Neutrophils 0 % (0-8) Platelet Estimate Increased H Platelet Morphology Normal Hypochromasia 1+ Anisocytosis 1+ Sodium Level 135 MMOL/L (136-145) L Potassium Level 3.9 MMOL/L (3.5-5.1) Chloride Level 99 MMOL/L (98-107) Carbon Dioxide Level 27 MMOL/L (21-32) Anion Gap 9 mmol/L (5-15) Blood Urea Nitrogen 5 mg/dL (7-18) L Creatinine 0.9 MG/DL (0.55-1.30) Estimat Glomerular Filtration Rate > 60 mL/min (>60) Glucose Level 97 MG/DL (74-106) Calcium Level 8.2 MG/DL (8.5-10.1) L Magnesium Level 2.3 MG/DL (1.8-2.4) Current Medications Medications (Trade) Dose Ordered Sig/Jami Route PRN Reason Start Time Stop Time Status Last Admin Dose Admin Acetaminophen (Tylenol) 650 mg Q4H PRN ORAL Temp >100.5 01/27/20 20:00 02/26/20 19:59 01/31/20 14:13 Ceftriaxone Sodium 1 gm/ Dextrose 55 ml @ 110 mls/hr Q24H IVPB 01/31/20 09:00 02/07/20 08:59 02/02/20 08:41 Clonazepam (KlonoPIN) 0.5 mg Q12H PRN ORAL For Anxiety 01/28/20 18:00 02/04/20 17:59 02/01/20 21:43 Dextrose (Dextrose 50%) 25 ml Q30M PRN IV Hypoglycemia 01/27/20 20:00 04/26/20 19:59 Dextrose (Dextrose 50%) 50 ml Q30M PRN IV Hypoglycemia 01/27/20 20:00 04/26/20 19:59 Diphenhydramine HCl (Benadryl) 25 mg Q6H PRN IVP Itching 01/31/20 17:15 03/01/20 17:14 02/01/20 23:36 Docusate Sodium (Colace) 100 mg TWICE A DAY ORAL 01/28/20 09:00 02/27/20 08:59 02/02/20 08:38 Escitalopram Oxalate (Lexapro) 10 mg Q24H ORAL 01/30/20 14:30 02/29/20 14:29 02/02/20 14:29 Heparin Sodium (Porcine) (Heparin 5000 units/ml) 5,000 units EVERY 12 HOURS SUBQ 01/29/20 21:00 03/14/20 20:59 02/02/20 08:38 Hydromorphone HCl 30 ml @ 0 mls/hr Q24H PRN IV For Pain 01/31/20 19:15 02/02/20 19:14 02/02/20 05:09 Hydroxyzine HCl (Vistaril) 10 mg Q6H PRN ORAL Itching 01/30/20 18:15 02/29/20 18:14 02/01/20 20:33 Magnesium Hydroxide (Mom) 30 ml HSPRN PRN ORAL Constipation 02/01/20 12:45 03/02/20 12:44 02/01/20 17:37 Metronidazole 100 ml @ 100 mls/hr Q8HR IVPB 02/01/20 14:00 02/08/20 13:59 02/02/20 14:30 Miscellaneous Medication (MOBILE HEAVY EQUIPMENT MECHANIC Rate Change) 1 ea DAILY PRN MISC rate change 01/31/20 19:15 02/02/20 19:14 Miscellaneous Medication (MOBILE HEAVY EQUIPMENT MECHANIC shift volume) 1 ea Q12HR@0700,1900 MISC 01/31/20 19:15 02/02/20 19:14 02/02/20 07:35 Sennosides (Senokot) 8.6 mg DAILY ORAL 02/02/20 09:00 03/03/20 08:59 02/02/20 08:39 Sodium Chloride 1,000 ml @ 75 mls/hr [id number] IV 01/28/20 08:00 02/27/20 07:59 02/02/20 05:03 Maykel Hernandez MD Feb 02, 2020 17:42
[2020-02-02] MEDS: clonazePAM 0.5mg tab ORAL PRN (21:34)
--- NOTE | 2020-02-02 22:16 | General Progress Note ---
Subjective Date patient seen: Feb 02, 2020 ROS Limited/Unobtainable: No Allergies: Coded Allergies: No Known Allergies (Unverified , 01/27/20) Subjective Constitutional: Denies: no symptoms, chills, diaphoresis, fever, malaise, weakness, other HEENT: Denies: no symptoms, eye pain, blurred vision, tearing, double vision, ear pain, ear discharge, nose pain, nose congestion, throat pain, throat swelling, mouth pain, mouth swelling, other Cardiovascular: Denies: no symptoms, chest pain, edema, irregular heart rate, lightheadedness, palpitations, syncope, other Respiratory: Denies: no symptoms, cough, orthopnea, shortness of breath, SOB with excertion, SOB at rest, sputum, stridor, wheezing, other Gastrointestinal/Abdominal: Denies: no symptoms, abdomen distended, abdominal pain, black stools, tarry stools, blood in stool, constipated, diarrhea, difficulty swallowing, nausea, poor appetite, poor fluid intake, rectal bleeding, vomiting, other Genitourinary: Denies: no symptoms, burning, discharge, frequency, flank pain, hematuria, incontinence, pain, urgency, other Neurologic/Psychiatric: Denies: no symptoms, anxiety, depressed, emotional problems, headache, numbness, paresthesia, pre-existing deficit, seizure, tingling, tremors, weakness, other Endocrine: Denies: no symptoms, excessive sweating, flushing, intolerance to cold, intolerance to heat, increased hunger, increased thirst, increased urine, unexplained weight gain, unexplained weight loss, other Hematologic/Lymphatic: Denies: no symptoms, anemia, easy bleeding, easy bruising, other No acute events overnight. Today patient reports some mild pain and discomfort in surgical site, but otherwise denies fever, chills, N/V/D, chest pain, SOB. Objective Last 24 Hour Vital Signs Date Time Temp Pulse Resp B/P (MAP) Pulse Ox O2 Delivery O2 Flow Rate FiO2 02/02/20 20:11 Room Air 02/02/20 20:00 98.7 97 20 119/73 (88) 98 02/02/20 16:20 98.9 108 18 124/70 (88) 98 02/02/20 12:00 98.4 107 18 126/85 (99) 99 11/24/20 10:50 95 Room Air 21 02/02/20 08:00 18 98 02/02/20 08:00 Room Air 02/02/20 07:40 98.6 106 18 127/73 (91) 98 02/02/20 04:00 98.3 104 20 128/80 (96) 97 02/02/20 00:00 98.6 101 20 134/72 (92) 98 Intake and Output 02/01/20 02/02/20 19:00 07:00 Intake Total 2375 ml 1700 ml Output Total 960 ml 1265 ml Balance 1415 ml 435 ml Intake Oral 1320 ml IV Total 1055 ml 900 ml Other 800 ml Output Urine Total 900 ml 1250 ml Drainage Total 60 ml 15 ml # Voids 6 4 Laboratory Tests 02/02/20 04:30: White Blood Count 18.2H, Red Blood Count 4.01L, Hemoglobin 10.9L, Hematocrit 34.2L, Mean Corpuscular Volume 85, Mean Corpuscular Hemoglobin 27.1, Mean Corpuscular Hemoglobin Concent 31.7L, Red Cell Distribution Width 14.9H, Platelet Count 520H, Mean Platelet Volume 6.0L, Neutrophils (%) (Auto) , Lymphocytes (%) (Auto) , Monocytes (%) (Auto) , Eosinophils (%) (Auto) , Basophils (%) (Auto) , Differential Total Cells Counted 100, Neutrophils % (Manual) 77H, Lymphocytes % (Manual) 9L, Monocytes % (Manual) 11H, Eosinophils % (Manual) 3, Basophils % (Manual) 0, Band Neutrophils 0, Platelet Estimate IncreasedH, Platelet Morphology Normal, Hypochromasia 1+, Anisocytosis 1+, Sodium Level 135L, Potassium Level 3.9, Chloride Level 99, Carbon Dioxide Level 27, Anion Gap 9, Blood Urea Nitrogen 5L, Creatinine 0.9, Estimat Glomerular Filtration Rate > 60, Glucose Level 97, Calcium Level 8.2L, Magnesium Level 2.3 Height (Feet): 5 Height (Inches): 11.00 Weight (Pounds): 205 Objective General Appearance: no apparent distress, alert, alert oriented x3, awake, conversant EENT: PERRL/EOMI, normal ENT inspection, no scleral icterus Cardiovascular: regular rhythm, normal S1/S2 sounds, no JVD, tachycardia Respiratory/Chest: lungs clear, normal breath sounds Abdomen: normal bowel sounds, non tender, soft Extremities: normal range of motion, other - Bilateral upper axillaries with surgical dressing, clean, dry intact, drains removed now Edema: no edema noted Arm (L), no edema noted Arm (R), no edema noted Leg (L), no edema noted Leg (R), no edema noted Pedal (L), no edema noted Pedal (R), no edema noted Generalized Neurologic: paraffiner II-XII grossly normal, alert, oriented x 3 Skin: normal pigmentation, warm/dry Assessment/Plan Assessment/Plan: Mr. Grayson is a 24-year-old male with past medical history of bilateral hidradenitis suppurative anxiety who presented as a postop A: #Bilateral hidradenitis status post excision and flap elevation on 1117 and 1119 #SIRS w/ leukocytosis plus tachycardia #Anemia likely postop loss #Bilateral HS in axillary, back #Postop pain #Anxiety P: Improving leukocytosis, low suspicion of infectious etiology, likely reactive to surgery Follow-up blood cultures, chest x-ray UA negative for infection, MRSA screen negative Continue Rocephin empirically, follow cultures Pathology report showing benign tissue hidradenitis suppurative Pain control still requiring ASSEMBLER TRIM pump every few hours Wound care and postop surgical management per surgery Bowel regimen Continue home Lexapro Continue clonazepam as needed for anxiety as patient takes benzos at home as well IVF Consult , ID, for clearance of discharge given persistent SIRS criteria -CM for wound care in [facility] where patient will be traveling to on Saturday Code: Full GI none DVT prophylaxis: Heparin 5000 mg twice daily Diet: Regular Dispo: Discharge tomorrow for flight back to [facility] Time spent on this encounter was 39 minutes which included 22 minutes of counseling and care coordination. I discussed with the nurse at bedside. Time of note may not reflect time patient was seen. Jamil Taylor M.D. Feb 02, 2020 22:16
--- NOTE | 2020-02-02 23:15 | Consultation ---
DATE OF CONSULTATION: 02/02/2020 INFECTIOUS DISEASE CONSULTATION CONSULTING PHYSICIAN: Maykel Hernandez M.D. ATTENDING PHYSICIAN: Manas March M.D. REFERRING PHYSICIAN: Manas March M.D. and Jamil Taylor M.D. REASON FOR CONSULTATION: Elevated white count, concern for possible sepsis, leukocytosis, fevers, and the patient with history of hidradenitis suppurativa, bilateral axilla wounds, and infected wounds. CHIEF COMPLAINT: The patient's chief complaint into the hospital is infected bilateral wounds of the axilla and hydradenitis suppurativa or infected hidradenitis suppurativa. HISTORY OF PRESENT ILLNESS: This is a very pleasant 24-year-old male, who has a history of hidradenitis suppurativa. The patient comes in with infected hidradenitis suppurativa of the axilla bilaterally. The patient is status post excision of the hidradenitis bilateral axilla and also closure. Per the operative note, the axilla wounds had infected hydradenitis. The operation I believe was on 01/29/2020 and the patient was noted to have an elevated white count and fevers. Because of this and concern of sepsis, Infectious Disease consultation was requested. I saw the patient yesterday and the patient was on Rocephin and Flagyl. UA and chest x-ray are negative. Blood cultures are negative to date. MAR was noted. Orders were noted. Notes were reviewed. REVIEW OF SYSTEMS: The patient is doing well postoperatively. He did have fevers on the 01/30/2020, however, he now is afebrile when I saw him. No chills. No night sweats. CARDIAC: No chest pain. GASTROINTESTINAL: No nausea, vomiting, or diarrhea. GENITOURINARY: No Juares. No urinary symptoms. PULMONARY: No cough, congestion, or shortness of breath. SKIN: No rash. EXTREMITIES: No pain. NEUROLOGIC: No seizures. No dysphagia or thrush as mentioned. PELVIC: His axilla area, the pain is controlled. PAST MEDICAL HISTORY: The patient has a past medical history of following. The patient has a past medical history of axillary hidradenitis suppurativa. He has history of anxiety, otherwise no other significant past medical history. He does have anemia postoperatively. Hidradenitis suppurativa of the axilla and anxiety. No history of diabetes. He has anemia postoperatively. ALLERGIES: No known drug allergies. No antibiotic allergies. SOCIAL HISTORY: Negative for smoking, alcohol, or drug abuse. FAMILY HISTORY: Noncontributory. MEDICATIONS: Upon reviewing the MAR, he is on the following medications. He is on Senokot. He is on Rocephin, metronidazole, hydromorphone, diphenhydramine, hydroxyzine, heparin, docusate sodium. Antibiotics, Rocephin and Flagyl. Outside medications noted and reconciliated. PHYSICAL EXAMINATION: VITAL SIGNS: Temperature is 98.9, pulse rate 108, respiratory rate 18, blood pressure 124/70, saturation 98%. T-max 101.5 on the 01/30/2020. GENERAL: Alert and responsive, in no acute distress. HEAD AND NECK: Oral exam, no thrush. Eye exam, no icterus. Normocephalic. Neck is supple. No JVD. HEART: No gallop or murmur. ABDOMEN: Soft. Positive bowel sounds. Nontender. LUNGS: Clear bilaterally. No rhonchi or rales. SKIN: No rash. MUSCULOSKELETAL: No effusions. No pain. Legs are without cellulitis. PERIPHERAL VASCULAR: No gangrene or cyanosis. GENITOURINARY: No Juares. No CVA tenderness. LINES: Line sites without phlebitis. NEUROLOGIC: Intact. Nonfocal. AXILLA: Wounds are covered. LABORATORY AND DIAGNOSTIC DATA: Laboratory data as follows. Creatinine 0.9. White count 18.2, hemoglobin 10.9. White count 20.6 yesterday. White count on 01/30/2020 was 13.7, on 01/29/2020 was 13.5. Creatinine 0.9. UA was negative. Blood cultures are negative to date. Imaging studies, chest x-ray on the 02/01/2020 showed no acute process. ASSESSMENT AND PLAN: 1. The patient has bilateral axilla hidradenitis suppurativa and infected wounds, status post excision and closure of the wounds and debridement. The patient's wounds per Dr. March's note seems to be stable postoperatively. He has SIRS criteria postoperatively with elevated heart rate and fevers and leukocytosis with questionable sepsis. The patient looks fairly stable. It is unclear if he truly has sepsis. The elevated white count, fevers, chills all could be postoperative, not necessarily infection. The patient is currently on Rocephin and Flagyl for broad-spectrum antibiotics for the elevated white count and fevers. The elevated white count is improved and fevers have resolved. Blood cultures, UA and chest x-ray are negative. At this time, continue Rocephin and Flagyl postoperatively for the . Continue Rocephin and Flagyl postoperatively. Monitor the patient clinically. If stable, can transition to oral Augmentin and Bactrim for polymicrobial Gram-negative and Gram-positive coverage for the recently debrided and excised hidradenitis suppurativa of the axilla wound infection and culture. Check final cultures. Check followup laboratories. Case was discussed with Dr. Taylor with regards to oral antibiotics, Augmentin and Bactrim upon discharge. 2. Hidradenitis suppurativa of bilateral axilla, status post debridement and closure of the infected wounds on 01/29/2020. Continue antibiotics for now. 3. Anxiety. 4. Anemia postoperatively. 5. Pain management per primary care team and Surgery. 6. Allergies are negative. 7. Social history is negative. 8. Family history is noncontributory. 9. MAR was noted. 10. Case was discussed with RN. 11. Case was discussed with Dr. Jamil Taylor. 12. Wound management and care per Dr. March. Maykel Hernandez M.D. DR: TABITHA JOB#: [id number] CC: [email or web address]
[2020-02-03] VITALS: BP 124/77
[2020-02-03] MEDS ORDERED: oxyCODONE 5mg IR tab ORAL PRN (01:30)
[2020-02-03] MEDS ORDERED: HYDROcodone/Acetamin 5/325 tab ORAL PRN (01:30)
[2020-02-03 03:56] VITALS: BP 144/80
[2020-02-03 07:50] VITALS: BP 130/84
[2020-02-03] MEDS: Docusate 100mg cap ORAL SCH (09:00)
[2020-02-03] MEDS: Sennosides 8.6mg tab ORAL SCH (09:00)
[2020-02-03] MEDS: Heparin 5000 units/ml inj SUBQ SCH (09:06)
[2020-02-03] MEDS: cefTRIAXone 1gm/D5W 55ml IVPB SCH ×2 (09:09)
[2020-02-03] MEDS ORDERED: 1/2 NS 1000ml IV ONE (10:53)
--- NOTE | 2020-02-03 22:36 | Discharge Summary ---
Discharge Summary Hospital Course Date of Admission Jan 27, 2020 at 21:06 Date of Discharge Feb 03, 2020 at 10:54 Admitting Diagnosis Hidradenitis suppurativa JUDITH Morris is a 24 year old male who was admitted on Jan 27, 2020 at 21:06 for Hidradenitis Mr. Grayson is a 24-year-old male with past medical history of bilateral axillary hidradenitis suppurative who is postop bilateral excision and flap removal of HS. no postoperative complications noted. Patient with some acute postop pain. Otherwise stable. Notes no other medical history aside of anxiety. Takes as Lexapro daily. Most modalities to treat his at bedtime however unsuccessful. Rest of review systems otherwise negative. Consultations Plastic surgery Dr. Mrach ID Dr. De La Rosa Procedures Bilateral axillary excision and flap elevation Hospital Course Mr. Grayson underwent axillary excision for HS and had no postop complications. Per ID consult, patient discharged home with Augmentin and Bactrim PO course after improvement in leukocytosis. Patient took flight home back to [place]. A: #Bilateral hidradenitis status post excision and flap elevation on 1117 and 0 #SIRS w/ leukocytosis plus tachycardia #Anemia likely postop loss #Bilateral HS in axillary, back #Postop pain #Anxiety Time spent on this discharge was 43 minutes which included 25 minutes of co unseling and care coordination, discharge planning, ID consult discussion for antibiotic selection, case management discussion regarding home health and wound care planning. I discussed with the nurse at bedside. Time of note may not reflect time patient was seen. Discharge Medications New Medications: Amoxicillin/Potassium Clav 875-125* (Augmentin 875-125 Tablet*) 1 Each Tablet 1 TAB ORAL TWICE A DAY for 7 Days, #14 TAB Hydrocodone Bit/Acetaminophen 5-325* ([place] 5-325 Tablet*) 1 Each Tablet 1 TAB ORAL Q6H PRN, #20 TAB 0 Refills Trimethoprim/Sulfamethoxazole 160/800* (Bactrim Ds Tablet*) 1 Each Tablet 1 TAB ORAL Q12H for 7 Days, #14 TAB 0 Refills Sennosides (Senna) 8.6 Mg Tablet 8.6 MG ORAL DAILY for 14 Days, #14 TAB Continued Medications: Escitalopram Oxalate* (Lexapro*) 10 Mg Tablet 10 MG ORAL DAILY for PRESCRIBED for 14 Days, #14 TAB (This prescription has been renewed) Discharge Condition Upon Discharge: improving Discharge Vital Signs Last Vital Signs Date Time Temp Pulse Resp B/P (MAP) Pulse Ox O2 Delivery O2 Flow Rate FiO2 02/03/20 09:28 95 Room Air 21 02/03/20 07:50 98.5 108 18 130/84 (99) 01/29/20 22:57 2.0 Exam on day of discharge General Appearance: no apparent distress, alert, alert oriented x3, awake, conversant EENT: PERRL/EOMI, normal ENT inspection, no scleral icterus Cardiovascular: regular rhythm, normal S1/S2 sounds, no JVD, tachycardia Respiratory/Chest: lungs clear, normal breath sounds Abdomen: normal bowel sounds, non tender, soft Extremities: normal range of motion, mild tenderness, other - Bilateral upper axillaries with surgical dressing, clean, dry intact Edema: no edema noted Arm (L), no edema noted Arm (R), no edema noted Leg (L), no edema noted Leg (R), no edema noted Pedal (L), no edema noted Pedal (R), no edema noted Generalized Neurologic: inhalation therapy teacher II-XII grossly normal, alert, oriented x 3 Skin: normal pigmentation, warm/dry Discharge Disposition Patient was discharged to home Discharge Diagnoses: (1) Hidradenitis suppurativa Discharge Instructions Discharge Instructions Follow up with: primary care physician in 7 days Call MD/Return to Hospital if: symptoms worsen or fail to improve Services Upon Discharge: home health services Activity: as tolerated For Surgical Patients Dressing Care: keep dry and clean Contact your physician for: bleeding, redness, swelling Jamil Taylor M.D. Feb 03, 2020 22:36
== END 2020-02-03 10:54 | disposition home or self-care (01) | DRG 577 ==
LOC: SUR 10:03 → EDBD 10:30 → EDSTATUS 10:30 → 3E 21:06
PROC: 0JBF0ZZ Excision of Left Upper Arm Subcutaneous Tissue and Fascia, Open Approach (ICD-10-PCS; principal; 2020-01-27 10:30)
PROC: 0JBD0ZZ Excision of Right Upper Arm Subcutaneous Tissue and Fascia, Open Approach (ICD-10-PCS; principal; 2020-01-27 10:30)
PROC: 0JX60ZC Transfer Chest Subcutaneous Tissue and Fascia with Skin, Subcutaneous Tissue and Fascia, Open Approach (ICD-10-PCS; principal; 2020-01-27 10:30)
PROC: 0JX60ZC Transfer Chest Subcutaneous Tissue and Fascia with Skin, Subcutaneous Tissue and Fascia, Open Approach (ICD-10-PCS; 2020-01-29)
DX: L73.2 Hidradenitis suppurativa (principal); T81.41XA Infection following a procedure, superficial incisional surgical site, initial encounter; F41.9 Anxiety disorder, unspecified; G89.18 Other acute postprocedural pain; D50.0 Iron deficiency anemia secondary to blood loss (chronic); D72.829 Elevated white blood cell count, unspecified
CPT/HCPCS: 36415; 71045; 80048; 80053; 81003; 83735; 85007; 85025; 87040; 87081; 94003; 94150; 94640; J2250; J2370; J2405; J2710; J7620; J8499; U0002